=== PATIENT | female | born 1930 | race Caucasian/White ===

== ENCOUNTER → 2016-09-23 | Outpatient (CLI) | payer MEDICARE ==
[2016-09-23 15:02] VITALS: BP 183/99; PULSE 72; RESP 18
--- NOTE | 2016-09-23 15:21 | P.PN ---
Progress Note - Text This is a pleasant 86-year-old female with history of right leg pain with numbness and tingling mostly on the lateral aspect of her right leg. The patient denies any bowel or bladder problems. She feels weakness in her right leg when she steps on it and her pain gets worse with weightbearing activities. She has been using Tylenol to help with her pain however the last it was very painful for her. Her pain has improved since then and it is much better today. She does have severe central stenosis at the L4 5 and L3 4 levels on the MRI of her lumbar spine. She usually gets pretty significant relief of her pain after the epidural steroid injection that she used to get. The last epidural steroid injection was done in February 2016. She had both interlaminar and transforaminal epidural steroid injection in both of these approaches give her good relief of pain. Today I will schedule the patient to have a transforaminal epidural steroid injection at the L4 5 and L3 4 levels on the right side under fluoroscopic guidance. I will also give the patient prescription for only 15 pills of Novi 5/325 mg to be used with severe pain if we can get her in soon enough for her procedure. The patient has a history of diabetes and she usually gets hyperglycemia for 3 days after the procedure however she was able to treat her hyperglycemia easily last time she had it.
== END | disposition home or self-care (01) ==
LOC: PNWHC3 14:24
PROVIDERS: ATTEND Anesthesiology
DX: M48.06 Spinal stenosis, lumbar region (principal); E11.9 Type 2 diabetes mellitus without complications; Z79.899 Other long term (current) drug therapy
CPT/HCPCS: 99211

== ENCOUNTER → 2017-12-22 | Outpatient (CLI) | payer MEDICARE ==
[2017-12-22 13:12] VITALS: BP 160/79; PULSE 78; RESP 18
--- NOTE | 2017-12-22 13:27 | P.PN ---
Progress Note - Text Progress Note Date: 12/22/17 Patient returns for followup for chronic back pain with radiation to bilateral posterior thighs. Patient recently underwent right sided TFESI x 2 in July 2016 with good pain relief, but legs have weakened in the past 18 months and she now has pain in both legs shooting down to her toes with numbness. Pain worsens with walking and improves with sitting down Patient denies adverse drug effects from medications. Today, pt denies new-onset weakness, bowel/bladder incontinence, or any other signs or symptoms of cauda equina syndrome. In addition to above, 13-point review of systems is also negative for chest pain , shortness of breath, changes in vision, changes in hearing, new onset weakness , abdominal pain, diarrhea, extreme fatigue, malaise, fever, skin changes, homicidal or suicidal ideation, or bowel or bladder incontinence. Gen: WDWN, AAOx3, NAD HEENT: NCAT, EOMI, hearing grossly normal Pulm: resp unlabored Abd: soft, NT, ND Neck: supple, trachea midline ROM in flexion lumbar spine: full ROM in extension lumbar spine: full Lumbar paravertebral tenderness: neg bilaterally Facet loading: neg bilaterally SI joint tenderness: neg bilateral Amandeep's test: neg bilateral Straight leg raise: + bilaterally Lower extremity: reduced strength in dorsi/plantarflexion Neuro: CN II-XII grossly intact, muscle strength lower extremities PRESERVED; decreased sensation bilateral LEs posterior Assessment: 1. lumbar spinal stenosis with neurogenic claudication 2. lumbar radiculopathy 3. lumbar spondylosis without myelopathy Plan: 1. Explanation: Opioid and psychological risk scores were reviewed. Diagnoses , prognoses, and multiple treatment options including but not limited to physical therapy, interventional therapies, adjuvant medical therapies, narcotic medication therapies, and surgery were discussed with the patient and all questions were answered to the patient's satisfaction. 2. Opioid contract: no opioids prescribed today 2. Counseling: The patient was counseled extensively on BODY MASS INDEX and EXERCISE. Specifically, the patient was instructed regarding the importance of smoking cessation, obesity, and exercise in the context of both chronic pain and overall health. 3. Procedures: LESI series L4-L5 if possible 4. Consultations: None 5. Investigations: None 6. Medications: none prescribed 7. Disposition: f/u for procedure as scheduled PQRS measures: 1-Patient's medications are documented in the chart. 2-Tobacco use is negative 3-Patient has not had a pneumococcal vaccine. 4-Advanced care planning discussed, patient not eligible. 5-No opioid contract 6-Pain positive, follow-up visit or procedure scheduled 7-Patient's blood pressure measured and documented, and patient will follow up with the primary care due to very high blood pressure. 8-Patient's weight was measured, and body mass index ABOVE the normal limits, and counseling was done. Patient instructed to follow up with PCP. 9-Patient WAS NOT identified as an unhealthy alcohol user.
== END | disposition home or self-care (01) ==
LOC: PNWHC3 12:19
PROVIDERS: ATTEND Anesthesiology
DX: G89.29 Other chronic pain (principal); M54.9 Dorsalgia, unspecified; M48.062 Spinal stenosis, lumbar region with neurogenic claudication; M47.26 Other spondylosis with radiculopathy, lumbar region
CPT/HCPCS: 99211

== ENCOUNTER 2018-01-25 09:38 | Day surgery (SDC) | payer MEDICARE ==
[2018-01-19 15:33] VITALS: BMI 31.1
[~2018-01-25 09:38] MED LIST: LACTATED RINGERS 1,000 ML IV SCH
[2018-01-25 10:38] VITALS: RESP 16; TEMP 98.6
[2018-01-25] MEDS ORDERED: LIDOCAINE 1% 20 ML VIAL (10MG/ML) FOR IV START INTRADERMA ONE (10:39)
[2018-01-25 10:54] LABS: Glucose,Whole Blood 135 mg/dL (75-99)
--- NOTE | 2018-01-25 11:48 | P.PCN ---
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 3-lumbar radiculopathy. 4-lumbar spinal stenosis. POSTOPERATIVE DIAGNOSIS: Same as preoperative diagnosis. PROCEDURE 1. Lumbar epidural steroid injection under fluoroscopic guidance at the L5-S1 level. 2. Lumbar epidurogram. ANESTHESIA: Local with 1% lidocaine 3 ml and , moderate sedation with intravenous Versed 2 mg , EBL: Minimal PROCEDURE INDICATION: The patient with low back pain and radiculitis symptoms unresponsive to conservative treatment. Fluoroscopy was used to optimize visualization of the needle placement and to maximize safety. PROCEDURE DESCRIPTION / TECHNIQUE: The patient was seen and identified in the preoperative area. Risks, benefits , complications including but not limited to infections ,bleeding ,allergic reaction to the medications ,nerve damage and not complete pain releife , and alternatives were discussed with the patient. The patient agreed to proceed with the procedure and signed the consent. IV was started, and vital signs were stable. Patient was taken to the OR and time out was completed. The patient was placed in the prone position on procedure table and a pillow was placed under the abdomen to reduce lumbar lordosis. The lumbosacral area was prepped and draped in the usual sterile fashion.ere closely monitored during the procedure. Conscious sedation was used during the procedure to decrease patients anxiety. Vital signs was monitered during the entire procedure. Using anterior-posterior fluoroscopy, the L5-S1 interlaminar space was identified and the skin over this site was marked and then infiltrated with 1% lidocaine subcutaneously. Subsequently, a 20-gauge Tuohy epidural needle was inserted and advanced toward the epidural space using the ``Loss of resistance technique and guided by AP and lateral fluoroscopy. The correct needle position in the epidural space was verified with the injection of 2 mL of the water soluble contrast dye Isovue 200 contrast and observing an excellent epidurogram with the epidural spread of the dye, after negative aspiration for blood and CSF and in the absence of paresthesias. Again after negative aspiration, a 6 ml mixture containing 40 mg of Depomedrol and 2 ml of preservative free Normal Saline, and 2 ml of preservative free lidocaine 1% solution was injected and a washout of epidurogram was seen. Needle was withdrawn intact, skin was cleansed, and bandages were applied. COMPLICATIONS: None DISPOSITION / PLANS: The patient was placed in a supine position and transferred to the recovery area in a stable condition for observation. There was no evidence of lower extremity motor or sensory deficit after the procedure. Patient was discharged from the recovery room after meeting discharge criteria. Home discharge instructions were given to the patient by the staff. The patient was reexamined prior to discharge. The patient will schedule a follow up in the clinic in 2-4 weeks.
[2018-01-25] MEDS ORDERED: LACTATED RINGERS 1,000 ML IV ONE (12:07)
[2018-01-25 12:10] VITALS: BP 142/63; PULSE 67
[2018-01-25 12:21] LABS: Glucose,Whole Blood 146 mg/dL (75-99)
--- NOTE | 2018-01-25 13:19 | FL ---
Fluoroscopy HISTORY: Pain 1 seconds fluoroscopy time supplied to the referring clinician. 1 intraoperative C-arm images docume nt the procedure. See dictated report from anesthesia.
== END 2018-01-25 12:39 | disposition home or self-care (01) ==
LOC: ORPAIN 09:38
PROVIDERS: ATTEND Specialist
DX: M48.061 Spinal stenosis, lumbar region without neurogenic claudication (principal); M51.16 Intervertebral disc disorders with radiculopathy, lumbar region; M47.26 Other spondylosis with radiculopathy, lumbar region; I10 Essential (primary) hypertension; E11.9 Type 2 diabetes mellitus without complications; Z88.3 Allergy status to other anti-infective agents
CPT/HCPCS: 62323; J2250; J1030; Q9966

== ENCOUNTER 2018-02-17 07:14 | Day surgery (SDC) | payer MEDICARE ==
[2018-02-14 09:26] VITALS: BMI 31.5
[2018-02-17] MEDS ORDERED: LIDOCAINE 1% 20 ML VIAL (10MG/ML) FOR IV START INTRADERMA ONE (07:36)
[2018-02-17 07:40] VITALS: TEMP 97.6
[2018-02-17 07:41] LABS: Glucose,Whole Blood 121 mg/dL (75-99)
--- NOTE | 2018-02-17 07:57 | P.PCN ---
Date of Procedure: 02/17/18 Description of Procedure: PREOPERATIVE DIAGNOSIS: 1-Lumbar radiculitis. POSTOPERATIVE DIAGNOSIS: 1-Lumbar radiculitis. PROCEDURE 1. Lumbar epidural steroid injection under fluoroscopic guidance at the L5-S1 level. 2. Lumbar epidurogram. ANESTHESIA: Local with 1% lidocaine; IV sedation with Versed/fentanyl. EBL: Minimal PROCEDURE INDICATION: The patient with low back pain and radiculitis symptoms unresponsive to conservative treatment, with good relief from first procedure and significant improvement in leg pain. Fluoroscopy was used to optimize visualization of the needle placement and to maximize safety. PROCEDURE DESCRIPTION / TECHNIQUE: The patient was seen and identified in the preoperative area. Risks, benefits, complications, and alternatives were discussed with the patient, including but not limited to bleeding, infection, nerve damage, allergic reactions to medications, and incomplete pain relief. The patient agreed to proceed with the procedure and signed the consent after all questions were answered. IV was started, and vital signs were stable. Patient was taken to the OR and time out was completed to confirm patient position, procedure, laterality of pain, and allergies. The patient was placed in the prone position on procedure table and a pillow was placed under the abdomen to reduce lumbar lordosis. The lumbosacral area was prepped and draped in the usual sterile fashion. Critical pause was taken. Vital signs were closely monitored during the procedure. Conscious sedation was used during the procedure to decrease patients anxiety. Using anterior-posterior fluoroscopy, the L5-S1 interlaminar space was identified and the skin over this site was marked and then infiltrated with 1% lidocaine subcutaneously in a right paramedian fashion. Subsequently, a 20- gauge Tuohy epidural needle was inserted and advanced toward the epidural space using the Loss of resistance technique and guided by AP and lateral fluoroscopy. The correct needle position in the epidural space was verified with the injection of 2 mL of the water soluble contrast dye Omnipaque 300 contrast and observing an excellent epidurogram with the epidural spread of the dye, after negative aspiration for blood and CSF and in the absence of paresthesias. Again after negative aspiration, a 6 ml mixture containing 80 mg of Kenalog and 4 ml of preservative free Normal Saline was injected and a washout of epidurogram was seen. Needle was withdrawn intact, skin was cleansed , and bandages were applied. COMPLICATIONS: None COMMENTS: DISPOSITION / PLANS: The patient was placed in a supine position and transferred to the recovery area in a stable condition for observation. There was no evidence of lower extremity motor or sensory deficit after the procedure. Patient was discharged from the recovery room after meeting discharge criteria. Home discharge instructions were given to the patient by the staff. The patient was reexamined prior to discharge. The patient will schedule a follow up in the clinic in 2-4 weeks.
[2018-02-17] MEDS ORDERED: IV FLUID CONTINUATION 1,000 ML IV ONE (08:18)
[2018-02-17 08:34] VITALS: BP 160/69; PULSE 57; RESP 18
[2018-02-17 08:39] LABS: Glucose,Whole Blood 159 mg/dL (75-99)
--- NOTE | 2018-02-17 09:31 | FL ---
Fluoroscopy HISTORY: Pain 2 seconds fluoroscopy time supplied to the referring clinician. 1 intraoperative C-arm images docume nt the procedure. See dictated report from anesthesia.
== END 2018-02-17 08:56 | disposition home or self-care (01) ==
LOC: ORPAIN 07:14
PROVIDERS: ATTEND Anesthesiology
DX: M51.16 Intervertebral disc disorders with radiculopathy, lumbar region (principal); M48.061 Spinal stenosis, lumbar region without neurogenic claudication; I10 Essential (primary) hypertension
CPT/HCPCS: 62323; J2250; J3301; Q9966

== ENCOUNTER → 2018-03-07 | Day surgery (SDC) | payer MEDICARE ==
[2018-03-03 13:28] VITALS: BMI 31.1
--- NOTE | 2018-03-07 07:44 | P.PN ---
Progress Note - Text Progress Note Date: 03/07/18 This is 87 years FEMALE with a history of severe chronic low back pain with radiating to the lower extremity, she was diagnosed with lumbar radiculopathy lumbar degenerative disc disease, lumbar spinal stenosis, we have done 2 lumbar epidural steroid injection, first one in January 2018 and the second one was done in February 2018, patient reported that her pain after the injection is improved significantly, currently having no pain, she reports,that her activity of daily livings in prone significantly, patient was scheduled to have a third lumbar epidural steroid injection today, but because she has no pain and she is feeling well since the last injection , the procedure will be canceled today , she will follow up with the pain clinic when necessary.
== END ==
LOC: ORPAIN 06:06
PROVIDERS: ATTEND Specialist
DX: Z53.8 Procedure and treatment not carried out for other reasons (principal); G89.29 Other chronic pain

== ENCOUNTER → 2018-03-20 | Outpatient (CLI) | payer MEDICARE ==
[2018-03-20 12:04] LABS: Calcium 8.5 mg/dL (8.4-10.2); Potassium 3.8 mmol/L (3.5-5.1)
== END | disposition home or self-care (01) ==
LOC: LABMAIN 11:34
PROVIDERS: ATTEND Internal Medicine Nephrology
DX: N18.4 Chronic kidney disease, stage 4 (severe) (principal)
CPT/HCPCS: 36415; 80048

== ENCOUNTER 2018-09-19 08:01 | Day surgery (SDC) | payer MEDICARE ==
[2018-09-19] MEDS ORDERED: SODIUM CHLORIDE 0.9% 500 ML 500 ML IV SCH (08:51)
[2018-09-19 08:55] VITALS: TEMP 97.9
[2018-09-19] MEDS ORDERED: LACTATED RINGERS 1,000 ML IV ONE (09:05)
[2018-09-19] MEDS ORDERED: LIDOCAINE 1% 20 ML VIAL (10MG/ML) FOR IV START INTRADERMA ONE (09:05)
[2018-09-19 09:07] LABS: Glucose,Whole Blood 125 mg/dL (75-99)
--- NOTE | 2018-09-19 10:13 | P.PCN ---
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 4-lumbar spinal stenosis POSTOPERATIVE DIAGNOSIS: Same as preoperative diagnosis. PROCEDURE 1. Lumbar epidural steroid injection under fluoroscopic guidance at the L5-S1 level. 2. Lumbar epidurogram. ANESTHESIA: Local with 1% lidocaine 3 ml and , moderate sedation with intravenous Versed 2 mg . EBL: Minimal PROCEDURE INDICATION: The patient with low back pain and radiculitis symptoms unresponsive to conservative treatment. Fluoroscopy was used to optimize visualization of the needle placement and to maximize safety. PROCEDURE DESCRIPTION / TECHNIQUE: The patient was seen and identified in the preoperative area. Risks, benefits , complications including but not limited to infections ,bleeding ,allergic reaction to the medications ,nerve damage and not complete pain releife , and alternatives were discussed with the patient. The patient agreed to proceed with the procedure and signed the consent. IV was started, and vital signs were stable. Patient was taken to the OR and time out was completed. The patient was placed in the prone position on procedure table and a pillow was placed under the abdomen to reduce lumbar lordosis. The lumbosacral area was prepped and draped in the usual sterile fashion.ere closely monitored during the procedure. Conscious sedation was used during the procedure to decrease patients anxiety. Vital signs was monitered during the entire procedure. Using anterior-posterior fluoroscopy, the L5-S1 interlaminar space was identified and the skin over this site was marked and then infiltrated with 1% lidocaine subcutaneously. Subsequently, a 20-gauge Tuohy epidural needle was inserted and advanced toward the epidural space using the ``Loss of resistance technique and guided by AP and lateral fluoroscopy. The correct needle position in the epidural space was verified with the injection of 2 mL of the water soluble contrast dye Isovue 200 contrast and observing an excellent epidurogram with the epidural spread of the dye, after negative aspiration for blood and CSF and in the absence of paresthesias. Again after negative aspiration, a 6 ml mixture containing 40 mg of Depo-medrol , and 2 ml of preservative free Normal Saline, and 2 ml of preservative free lidocaine 1% solution was injected and a washout of epidurogram was seen. Needle was withdrawn intact, skin was cleansed, and bandages were applied. COMPLICATIONS: None DISPOSITION / PLANS: The patient was placed in a supine position and transferred to the recovery area in a stable condition for observation. There was no evidence of lower extremity motor or sensory deficit after the procedure. Patient was discharged from the recovery room after meeting discharge criteria. Home discharge instructions were given to the patient by the staff. The patient was reexamined prior to discharge. The patient will schedule a follow up in the clinic in 2-4 weeks.
--- NOTE | 2018-09-19 10:23 | FL ---
EXAMINATION TYPE: FL guided pain mgmt statistic DATE OF EXAM: 09/19/2018 HISTORY: Flouroscopy time 2 seconds of fluoroscopy provided. IMPRESSION: 1. Fluoroscopy time.
[2018-09-19] MEDS ORDERED: IV FLUID CONTINUATION 750 ML IV ONE (10:24)
[2018-09-19 10:38] VITALS: BP 161/57; PULSE 59; RESP 18
== END 2018-09-19 10:52 | disposition home or self-care (01) ==
LOC: ORPAIN 08:01
PROVIDERS: ATTEND Specialist
DX: M51.16 Intervertebral disc disorders with radiculopathy, lumbar region (principal); M47.26 Other spondylosis with radiculopathy, lumbar region; M48.061 Spinal stenosis, lumbar region without neurogenic claudication; I10 Essential (primary) hypertension; Z88.1 Allergy status to other antibiotic agents
CPT/HCPCS: 62323; J2250; J1030; Q9966

== ENCOUNTER → 2018-11-03 | Outpatient (CLI) | payer MEDICARE ==
[2018-11-03 14:08] VITALS: BP 159/84; PULSE 89; RESP 16
--- NOTE | 2018-11-03 14:24 | P.PN ---
Subjective Progress Note Date: 11/03/18 This is an 88-year-old lady with history of chronic lower back pain with radiation to the right lower extremity due to severe lumbar stenosis. The patient has been getting very good response to lumbar epidural steroid injections and she denies any pain in her right leg right now however she does have localized pain in the left buttock area that gets worse by sitting and improved by walking around. Today, pt denies new-onset weakness, bowel/bladder incontinence, or any other signs or symptoms of cauda equina syndrome. There are no signs of acute intoxication, and no indications of medication diversion or overuse. In addition to above, 13-point review of systems is also negative for chest pain , shortness of breath, changes in vision, changes in hearing, new onset weakness , abdominal pain, diarrhea, extreme fatigue, malaise, fever, skin changes, homicidal or suicidal ideation, or bowel or bladder incontinence. Vital Signs: Reviewed in EMR Gen: AAOx3, NAD HEENT: PERRLA,hearing grossly normal Pulm: resp unlabored,CTA Heart:S1,S2, No Mur Neck: supple, trachea midline Neuro exam of the lower extremities: Muscle strength is within normal limits bilaterally She has tenderness around the left ischial tuberosity Neuro: CN II-XII grossly intact, Imaging: Reviewed in EMR/chart Assessment: Severe lumbar stenosis Left ischial bursitis Plan: The patient's pain overall is a 3 out of 10 and has improved significantly since the last injection in her back. 1. Explanation: Opioid and psychological risk scores were reviewed. Diagnoses , prognoses, and multiple treatment options including but not limited to physical therapy, interventional therapies, adjuvant medical therapies, narcotic medication therapies, and surgery were discussed with the patient and all questions were answered to the patient's satisfaction. 2. Opioid agreement: Patient is done in the morning for her pain 3. Counseling: The patient was counseled extensively on SMOKING CESSATION, BODY MASS INDEX, EXERCISE. Specifically, the patient was instructed regarding the importance of smoking cessation, obesity, and exercise in the context of both chronic pain and overall health. 4. Procedures: None at this point however if her left buttock pain gets worse and then we can plan on doing left ischial bursa steroid injection 5. Consultations: None 6. Investigations: None 7. Medications: None 8. Disposition: Return to clinic as needed 9. Maps were reviewed and were appropriate. PQRS measures: 1-Patient's medications are documented in the chart. 2-Tobacco use is negative, counseling given 3-Patient has had a pneumococcal vaccine. 4-Advanced care planning discussed, patient unable to give 5-Opioid contract is not signed with the patient. The patient does not was opioids for her pain. 6-Pain positive, follow-up visit or procedure scheduled 7-Patient's blood pressure measured and documented elevated, the patient will follow-up with her primary care physician. 8-Patient's weight was measured, and body mass index ABOVE the normal limits, and counseling was done. Patient instructed to follow up with PCP. 9-Patient WAS NOT identified as an unhealthy alcohol user. Objective - Vital Signs Vital signs: Vital Signs Temp Pulse 89 11/03/18 13:57 Resp 16 11/03/18 13:57 BP 159/84 11/03/18 13:57 Pulse Ox 94 L 11/03/18 13:57 Intake & Output 11/02/18 11/03/18 11/03/18 18:59 06:59 18:59 Weight 75.75 kg
== END | disposition home or self-care (01) ==
LOC: PNWHC3 13:26
PROVIDERS: ATTEND Anesthesiology
DX: G89.29 Other chronic pain (principal); M48.061 Spinal stenosis, lumbar region without neurogenic claudication; M70.72 Other bursitis of hip, left hip
CPT/HCPCS: 99211

== ENCOUNTER 2018-12-21 07:51 | Day surgery (SDC) | payer MEDICARE ==
[2018-12-19 11:37] VITALS: BMI 31.1
[2018-12-21] MEDS ORDERED: LACTATED RINGERS 1,000 ML IV ONE (08:32)
[2018-12-21 08:34] VITALS: RESP 18; TEMP 97.8
[2018-12-21 08:38] LABS: Glucose,Whole Blood 181 mg/dL (75-99)
[2018-12-21] MEDS ORDERED: IV FLUID CONTINUATION 1,000 ML IV ONE (09:27)
--- NOTE | 2018-12-21 09:32 | P.PCN ---
Date of Procedure: 12/21/18 Procedure(s) Performed: Ischial bursa injection Description of Procedure: Procedure left ischial bursa injection Indication ischial bursitis Anesthesia: 50 gavin grams of fentanyl Patient was seen and assessed in the preoperative area. Consent was signed H&P was updated. Patient was brought into the procedure room and was placed supine on the operative table. Left buttock was prepped with ChloraPrep. Sterile field was made. Fluoroscopy was used to identify the ischial spine on the left side. At that time a 25-gauge spinal needle was advanced to the ischial spine. Aspiration was negative. At that time 5 ML's of 0.5% ropivacaine along with 40 mg of Depo-Medrol was placed. Images were saved into the medical record. Band- Aid was placed Patient to follow up with us as needed in the clinic.
--- NOTE | 2018-12-21 09:53 | FL ---
EXAMINATION TYPE: FL guided pain mgmt statistic DATE OF EXAM: 12/21/2018 HISTORY: Flouroscopy time 5 seconds of fluoroscopy provided. IMPRESSION: 1. Fluoroscopy time.
[2018-12-21 09:58] VITALS: BP 150/73; PULSE 56
== END 2018-12-21 10:03 | disposition home or self-care (01) ==
LOC: ORPAIN 07:51
PROVIDERS: ATTEND Hospitalist
DX: M70.72 Other bursitis of hip, left hip (principal); Z88.1 Allergy status to other antibiotic agents
CPT/HCPCS: 77002; 20610; J1100; J3010

== ENCOUNTER 2019-03-13 21:26 | Emergency (ER) | payer MEDICARE ==
[2019-03-13 22:07] VITALS: BP 178/99; PULSE 68; RESP 18; TEMP 97.9
--- NOTE | 2019-03-14 00:12 | ED ---
General Adult HPI - General Chief complaint: Extremity Problem,Nontraumatic Stated complaint: Poss blood clot in leg Time Seen by Provider: 03/13/19 22:31 Source: patient Mode of arrival: wheelchair Limitations: no limitations - History of Present Illness Initial comments: Dictation was produced using [employer] dictation software. please excuse any grammatical, word or spelling errors. Chief Complaint: 88-year-old female presents with left ankle pain and right calf pain 1 day. History of Present Illness: Patient is a 88-year-old female she presents today with left ankle pain and right calf pain. Patient is concerned about a blood clot popped her to come to the emergency department. Patient has no history of coagulopathy, DVT or PE. Patient presents today with family for concerns of DVT. Patient states there is no trauma to the leg. She does complain some swelling over the lateral malleolus. She has no other complaints at this time. Denies any shortness of breath or chest pain. The ROS documented in this emergency department record has been reviewed and confirmed by me. Those systems with pertinent positive or negative responses have been documented in the HPI. All other systems are other negative and/or noncontributory. PHYSICAL EXAM: General Impression: Alert and oriented x3, not in acute distress HEENT: Normocephalic atraumatic, extra-ocular movements intact, pupils equal and reactive to light bilaterally, mucous membranes moist. Cardiovascular: Heart regular rate and rhythm, S1&S2 audible, no murmurs, rubs or gallops Chest: Lungs clear to auscultation bilaterally, no rhonchi, no wheeze, no rales Abdomen: Bowel sounds present, abdomen soft, non-tender, non-distended, no organomegaly Musculoskeletal: Pulses present and equal in all extremities, no peripheral edema, mild swelling to the left lateral ankle, no asymmetrical swelling to the lower extremities, mild left calf tenderness. Motor: no focal deficits noted Neurological: CN II-XII grossly intact, no focal motor or sensory deficits noted Skin: Intact with no visualized rashes Psych: Normal affect and mood ED course: 88-year-old female presents with chief complaint of left lateral malleolus pain. No trauma. Swelling is minimal at best. Patient is concerned about deep venous thrombosis. Patient does have some slight calf tenderness. Over no asymmetrical girth. Vital signs upon arrival are within acceptable limits. Patient does not have any physical exam findings or complaints to suggest pulmonary embolus.Ankle x-rays and ultrasound of the left lower extremity deep venous system does not show any signs of deep venous thrombosis. Ankle x-rays are nonacute. Patient clear for discharge. She is told to follow- up with PCP for outpatient management of symptoms. - Related Data Home Medications Medication Instructions Recorded Confirmed Atenolol [Tenormin] 25 mg PO DAILY 06/04/15 03/13/19 Ferrous Sulfate [Feosol] 325 mg PO DAILY 06/04/15 03/13/19 Ergocalciferol [Vitamin D2] 50,000 unit PO MO 12/09/15 03/13/19 Insulin Lispro Protamin/Lispro See Protocol SQ QAM 12/09/15 03/13/19 [humaLOG Mix 75-25 Kwikpen] Potassium Citrate [Urocit-K] 10 meq PO DAILY 12/09/15 03/13/19 L.acidoph,Paracasei, B.lactis 1 cap PO DAILY 01/22/16 03/13/19 [Probiotic] Gabapentin [Neurontin] 100 mg PO DAILY 09/23/16 03/13/19 Turmeric Root Extract [Turmeric] 400 mg PO DAILY 11/03/18 03/13/19 Allergies Allergy/AdvReac Type Severity Reaction Status Date / Time levofloxacin [From Levaquin] Allergy SHORTNESS Verified 03/13/19 22:51 OF BREATH Review of Systems ROS Statement: Those systems with pertinent positive or pertinent negative responses have been documented in the HPI. ROS Other: All systems not noted in ROS Statement are negative. Past Medical History Past Medical History: Cancer, Diabetes Mellitus, Hypertension, Osteoarthritis (OA), Renal Disease Additional Past Medical History / Comment(s): HX "sciatica." PAIN IN BUTTOCKS AND DOWN LEGS, NUMBNESS IN TOES. HX OF FALL IN 12/2016, FX 2 RIBS. kidney stones. RENAL DISEASE STAGE 4., STATES RECENT SKIN CANCER ON FACE REMOVED. History of Any Multi-Drug Resistant Organisms: None Reported Past Surgical History: Hysterectomy Additional Past Surgical History / Comment(s): SKIN CA EXC BACK, RT Hand & ELBOW. PAIN PROCEDURES. Past Anesthesia/Blood Transfusion Reactions: No Reported Reaction Past Psychological History: No Psychological Hx Reported Smoking Status: Never smoker Past Alcohol Use History: None Reported Past Drug Use History: None Reported - Past Family History Daughter(s) Family Medical History: Cancer, Pulmonary Embolus Father Family Medical History: Cancer Additional Family Medical History / Comment(s): BLADDER CANCER General Exam Limitations: no limitations Course Vital Signs 03/13/19 22:03 Temperature 97.9 F Pulse Rate 68 Respiratory 18 Rate Blood Pressure 178/99 O2 Sat by Pulse 100 Oximetry Disposition Clinical Impression: Ankle pain Disposition: HOME SELF-CARE Condition: Poor Instructions (If sedation given, give patient instructions): Swollen Joint (ED) Is patient prescribed a controlled substance at d/c from ED?: No Referrals: Emil Portillo MD [Primary Care Provider] - 1-2 days Time of Disposition: 01:34
--- NOTE | 2019-03-14 00:26 | XR ---
INDICATION: Pain COMPARISON: None FINDINGS: AP, mortise, and lateral views of the left ankle are obtained. The bones are osteopenic. There is no evidence of acute fracture or malalignment. Ankle mortise and syndesmosis are congruent and the talar dome is intact. There are well-corticated ossicles inferior to the tips of the medial and lateral malleoli, compatible with sequela of prior trauma. There is posterior and plantar calcaneal enthesopathy. There is no focal soft tissue swelling. IMPRESSION: No acute fracture or subluxation identified.
--- NOTE | 2019-03-14 01:24 | US ---
INDICATION: Pain and swelling left leg TECHNIQUE: The left lower extremity deep venous system is examined utilizing real time linear array sonography with graded compression, doppler sonography and color-flow sonography. COMPARISON: None. FINDINGS: Normal compressibility is demonstrated from the common femoral vein to the popliteal vein. There is normal response to augmentation. Normal spontaneous phasic flow is noted. The proximal calf veins are patent. IMPRESSION: No evidence of deep venous thrombosis in the left lower extremity.
== END 2019-03-14 01:45 | disposition home or self-care (01) ==
LOC: EC 21:26
DX: M25.572 Pain in left ankle and joints of left foot (principal); M79.89 Other specified soft tissue disorders; I12.9 Hypertensive chronic kidney disease with stage 1 through stage 4 chronic kidney disease, or unspecified chronic kidney disease; E13.22 Other specified diabetes mellitus with diabetic chronic kidney disease; N18.4 Chronic kidney disease, stage 4 (severe); Z79.4 Long term (current) use of insulin; Z79.899 Other long term (current) drug therapy; Z88.1 Allergy status to other antibiotic agents; Z87.39 Personal history of other diseases of the musculoskeletal system and connective tissue; Z91.81 History of falling; Z87.81 Personal history of (healed) traumatic fracture; Z85.828 Personal history of other malignant neoplasm of skin
CPT/HCPCS: 99284

== ENCOUNTER → 2019-07-19 | Outpatient (CLI) | payer MEDICARE ==
[2019-07-19 11:28] VITALS: BP 165/89; PULSE 72; RESP 16
--- NOTE | 2019-07-20 09:22 | P.PAINPG ---
Subjective Progress Note Date: 07/19/19 This is a follow-up visit for this 89 years old female with a chronic history of severe low back pain, she states diagnosed with lumbar degenerative disc disease and lumbar spinal stenosis and lumbar spondylosis with lumbar facet arthropathy, and left trochanteric bursitis, previously we have done lumbar epidural steroid injection, and left trochanteric bursa, patient responded very well to interventional pain management, currently patient complaining of severe low back pain with radiation to the lower extremity with some numbness and tingling sensation, and also she had severe left hip pain, the pain increases with any activity, interfere with the quality of life, it is constant, she continued to use Tylenol arthritis and Neurontin 100 mg, she denies any side effect of the medication and she is getting prescriptions from her primary care, she denies any change in the bowel movement or urination she denies any fever or night sweats Objective - Vital Signs Vital signs: Vital Signs Temp Pulse 72 07/19/19 11:20 Resp 16 07/19/19 11:20 BP 165/89 07/19/19 11:20 Pulse Ox 97 07/19/19 11:20 - Exam Physical Examinations : -Constitutiona : Cooperative , not in acute distress . -HEENT : nech : supple , no Lymphadenopathy , normal thyroid size . : eyes : no ptosis , no icterus, no photophobia . - neurologic : Cranial nerve II to XII intact , no focal neurological deffecit . -psychatric : alert , oriented X 3 , appropriate affect , intact judgment and insight . -Lymphatic : no Lymphadenopathy . - musculoskeltal : Lumber spine moter stegnth lower extremities ,thigh and legs 4/5 Right side , 4/5 Left side deep tendon reflexes : normal Knee Jerk , normal ankle Jerk lumber facet Loading Test =positive Right , posiutive Left Range of motion of the lumbar spine Flexion 30 degrees, extension 10 degrees strait leg raising test = positive at 30 degree Fabere test= positive Right , and positive LT . Sever tenderness over the left trochanteric bursa . Assessment and Plan Plan: Assessment and plan= low back pain secondary to lumbar degenerative disc disease and lumbar spinal stenosis and lumbar spondylosis, and left trochanteric bursitis, patient will be good candidate to have a left trochanteric bursa steroid injection at the same time we can do a lumbar epidural steroid injection under fluoroscopy guidance at L5-S1, or L4-L5 , procedure risk and benefits and alternatives discussed with the patient she agreed with the preceding. Patient should continue to use her current medications Tylenol arthritis and Neurontin and she is getting prescriptions from her primary care Time with Patient: Less than 30 PQRS Measure Charge Sheet Measure #130: Documentation of Current Meds in Medical Chart: Patient's medications documented in chart Measure #226: Tobacco Use: Screen & Cessation Intervention: Pt not a tobacco user Measure #111: Pneumonia Vaccination: Pneumococcal vaccine administered or previously received Measure #47: Advance Care Plan: Advance care planning discussed & documented, pt chose/unable to give Measure #412: Opioid Treatment Agreement: No documentation of signed opioid treatment agreement Measure #408: Opioid Therapy Follow-up Evaluation: Patient had NO f/u eval minimum every 3 months during opioid therapy Measure #317: Preventitive Care & Scrn High Bld Press & F/U: Pre-hypertensive or hypertensive BP documented, pt will f/u with PCP Measure #128: Body Mass Index (BMI) Screening & Follow-up: BMI documented ABOVE normal parameters - f/u documented Measure #131: Pain Assessment & Follow-up: Pain positive & plan documented, Follow-up scheduled Measure #431: Unhealthy Alcohol Use Preventative Care & Scrn: Patient not identified as an unhealthy alcohol user PQRS Narrative: Smoking Status Never smoker Blood Pressure 165/89 Pain Intensity [Buttock] 7 Scale Used Numeric (1 - 10) Hx Alcohol Use (MH) No Home Medications: Ambulatory Orders Atenolol [Tenormin] 25 mg PO DAILY 06/04/15 Ferrous Sulfate [Feosol] 325 mg PO DAILY 06/04/15 Ergocalciferol [Vitamin D2] 50,000 unit PO MO 12/09/15 Insulin Lispro Protamin/Lispro [humaLOG Mix 75-25 Kwikpen] See Protocol SQ QAM 12/09/15 Potassium Citrate [Urocit-K] 10 meq PO DAILY 12/09/15 Gabapentin [Neurontin] 100 mg PO DAILY 09/23/16 Turmeric Root Extract [Turmeric] 400 mg PO DAILY 11/03/18 Acetaminophen [Tylenol Arthritis] 1,300 mg PO DAILY PRN 07/13/19 Controlled Substance Measures - Controlled Substance Measures Is patient prescribed a controlled substance at discharge?: No
== END | disposition home or self-care (01) ==
LOC: PNWHC3 10:53
PROVIDERS: ATTEND Specialist
DX: M48.061 Spinal stenosis, lumbar region without neurogenic claudication (principal); M51.36 Other intervertebral disc degeneration, lumbar region; M47.816 Spondylosis without myelopathy or radiculopathy, lumbar region; M70.62 Trochanteric bursitis, left hip; Z79.891 Long term (current) use of opiate analgesic; Z79.899 Other long term (current) drug therapy
CPT/HCPCS: 99211

== ENCOUNTER 2019-07-27 05:54 | Day surgery (SDC) | payer MEDICARE ==
[2019-07-26 09:19] VITALS: BMI 29.0
[2019-07-27 06:24] VITALS: TEMP 97.7
[2019-07-27] MEDS ORDERED: LIDOCAINE 1% 20 ML VIAL (10MG/ML) FOR IV START INTRADERMA ONE (06:24)
[2019-07-27 06:36] LABS: Glucose,Whole Blood 177 mg/dL (75-99)
[2019-07-27] MEDS ORDERED: hydrALAZINE HCL 20 MG/ML 1 ML VIAL IVP PRN (07:24)
--- NOTE | 2019-07-27 07:24 | P.PCN ---
Date of Procedure: 07/27/19 Procedure(s) Performed: PREOPERATIVE DIAGNOSIS: 1- Lumbar Degenerative Disc Diseases 2-Lumbar spondylosis with Facet arthropathy without myelopathy 3-left trochanteric bursitis. POSTOPERATIVE DIAGNOSIS: 1-Lumber Degenerative Disc Diseases 2-Lumbar spondylosis with Facet arthropathy without myelopathy. 3-left trochanteric bursitis. PROCEDURE 1. Lumbar epidural steroid injection under fluoroscopic guidance at the L5-S1 level. (Fluoroscopy imaging was available in radiology department) 2. Lumbar epidurogram. 3. Left trochanteric bursa steroid injection under fluoroscopy guidance. ANESTHESIA: Local with 1% lidocaine 3 ml and , moderate sedation with intravenous Versed 1 mg . EBL: Minimal PROCEDURE INDICATION: The patient with low back pain and radiculitis symptoms unresponsive to conservative treatment. Fluoroscopy was used to optimize visualization of the needle placement and to maximize safety. PROCEDURE DESCRIPTION / TECHNIQUE: The patient was seen and identified in the preoperative area. Risks, benefits, complications including but not limited to infections ,bleeding ,allergic reaction to the medications ,nerve damage and not complete pain releife , and alternatives were discussed with the patient. The patient agreed to proceed with the procedure and signed the consent. IV was started, and vital signs were stable. Patient was taken to the OR and time out was completed. The patient was placed in the prone position on procedure table and a pillow was placed under the abdomen to reduce lumbar lordosis. The lumbosacral area was prepped and draped in the usual sterile fashion.ere closely monitored during the procedure. Conscious sedation was used during the procedure to decrease patients anxiety. Vital signs was monitered during the entire procedure. Using anterior-posterior fluoroscopy, the L5-S1 interlaminar space was identif ied and the skin over this site was marked and then infiltrated with 1% lidocaine subcutaneously. Subsequently, a 20-gauge Tuohy epidural needle was inserted and advanced toward the epidural space using the ``Loss of resistance technique and guided by AP and lateral fluoroscopy. The correct needle position in the epidural space was verified with the injection of 2 mL of the water soluble contrast dye Isovue 200 contrast and observing an excellent epidurogram with the epidural spread of the dye, after negative aspiration for blood and CSF and in the absence of paresthesias. Again after negative aspiration, a 6 ml mixture containing 40 mg of Depo-medrol , and 2 ml of preservative free Normal Saline, and 2 ml of preservative free lidocaine 1% solution was injected and a washout of epidurogram was seen. Needle was withdrawn intact. In the left trochanteric bursa injection done under sterile technique after the left hip area prepped with Betadine 3 then using 25-gauge needle the needle advanced slowly under fluoroscopy and placed in the left trochanteric bursa area, needle placement confirmed with AP and lateral view then after negative aspiration ropivacaine 0.5% far mixed with 10 mg of Depo-Medrol, injected in the left trochanteric bursa after negative aspiration, and the needle removed intact, and area was cleaned COMPLICATIONS: None DISPOSITION / PLANS: The patient was placed in a supine position and transferred to the recovery area in a stable condition for observation. There was no evidence of lower extremity motor or sensory deficit after the procedure. Patient was discharged from the recovery room after meeting discharge criteria. Home discharge instructions were given to the patient by the staff. The patient was reexamined prior to discharge. The patient will schedule a follow up in the clinic in 2-4 weeks.
[2019-07-27] MEDS ORDERED: IV FLUID CONTINUATION 1,000 ML IV ONE (07:27)
[2019-07-27] MEDS ORDERED: hydrALAZINE HCL 20 MG/ML 1 ML VIAL IVP ONE (07:35)
[2019-07-27 07:51] VITALS: BP 154/71; PULSE 64; RESP 16
--- NOTE | 2019-07-27 07:51 | FL ---
Fluoroscopy HISTORY: Pain 5 seconds fluoroscopy time supplied to the referring clinician. 2 intraoperative C-arm images docume nt the procedure. See dictated report from anesthesia.
== END 2019-07-27 08:02 | disposition home or self-care (01) ==
LOC: ORPAIN 05:54
PROVIDERS: ATTEND Specialist
DX: M47.26 Other spondylosis with radiculopathy, lumbar region (principal); M51.16 Intervertebral disc disorders with radiculopathy, lumbar region; M70.62 Trochanteric bursitis, left hip; I10 Essential (primary) hypertension; E11.9 Type 2 diabetes mellitus without complications; Z88.1 Allergy status to other antibiotic agents
CPT/HCPCS: 62323; 20610; J2250; J0360; J1030; Q9966; 99152

== ENCOUNTER 2019-08-14 11:01 | Inpatient (IN) | payer MEDICARE ==
[2019-08-14] MEDS ORDERED: SODIUM CHLORIDE 0.9% 1,000 ML IV STA (11:17)
[2019-08-14] MEDS ORDERED: DILTIAZEM 5 MG/ML 5 ML VIAL IVP STA (11:23)
--- NOTE | 2019-08-14 11:25 | ED ---
SOB HPI - General Chief Complaint: Shortness of Breath Stated Complaint: Dizziness Time Seen by Provider: 08/14/19 11:17 Source: EMS Mode of arrival: EMS Limitations: no limitations - History of Present Illness Initial Comments: Patient complains of progressively worsening shortness of breath. She also has lightheadedness. Her lightheadedness and shortness of breath are worse when she gets up. She states that her symptoms were so much worse today that she was afraid to get out of bed. She lives by herself. She does not feel like she can walk because she is so lightheaded when she stands up. She has palpitations. She has no chest pain or pressure. She has no pain or swelling in the arms or legs. She has no nausea or vomiting or diaphoresis. She has taken no medicine for this. She denies sick contacts or travel. - Related Data Home Medications Medication Instructions Recorded Confirmed Atenolol [Tenormin] 25 mg PO DAILY PRN 06/04/15 08/14/19 Ferrous Sulfate [Feosol] 325 mg PO DAILY 06/04/15 08/14/19 Ergocalciferol [Vitamin D2] 50,000 unit PO MO 12/09/15 08/14/19 Insulin Lispro Protamin/Lispro See Protocol SQ QAM 12/09/15 08/14/19 [humaLOG Mix 75-25 Kwikpen] Potassium Citrate [Urocit-K] 10 meq PO DAILY 12/09/15 08/14/19 Gabapentin [Neurontin] 100 mg PO DAILY 09/23/16 08/14/19 Turmeric Root Extract [Turmeric] 400 mg PO DAILY 11/03/18 08/14/19 Acetaminophen [Tylenol Arthritis] 1,300 mg PO DAILY PRN 07/13/19 08/14/19 Allergies Allergy/AdvReac Type Severity Reaction Status Date / Time levofloxacin [From Levaquin] Allergy SHORTNESS Verified 08/14/19 09:34 OF BREATH Review of Systems ROS Statement: Those systems with pertinent positive or pertinent negative responses have been documented in the HPI. ROS Other: All systems not noted in ROS Statement are negative. Past Medical History Past Medical History: Cancer, Diabetes Mellitus, Hypertension, Osteoarthritis (OA), Renal Disease Additional Past Medical History / Comment(s): HX "sciatica." PAIN IN BUTTOCKS AND DOWN LEGS, NUMBNESS IN TOES-now resolved. HX OF FALLS, FX 2 RIBS. kidney stones. RENAL DISEASE STAGE 4 (STATES IMPROVED)., SKIN CANCER, STATES SHE HAS DIFFICULTY PICKING UP HER FEET WHEN SHE WALKS OR GOING UP A CURB- SHE SCHUFFLES WHEN SHE WALKS., STATES LEFT LEG GOES NUMB AT TIMES, BALANCE PROBLEMS. BP has been running low at home recently-feels dizzy( to call PCP), hx gout History of Any Multi-Drug Resistant Organisms: None Reported Past Surgical History: Hysterectomy Additional Past Surgical History / Comment(s): SKIN CA EXC BACK and face, RT Hand & ELBOW. PAIN PROCEDURES. Past Anesthesia/Blood Transfusion Reactions: Family History of Problems w/ Anesthesia Additional Past Anesthesia/Blood Transfusion Reaction / Comment(s): DAUGHTER=PONV Past Psychological History: No Psychological Hx Reported Smoking Status: Never smoker - Past Family History Daughter(s) Family Medical History: Cancer, Pulmonary Embolus Father Family Medical History: Cancer Additional Family Medical History / Comment(s): BLADDER CANCER General Exam Limitations: no limitations General appearance: alert, in no apparent distress Head exam: Present: atraumatic, normocephalic, normal inspection Eye exam: Present: normal appearance, PERRL, EOMI. Absent: scleral icterus, conjunctival injection, periorbital swelling ENT exam: Present: normal exam, mucous membranes moist Neck exam: Present: normal inspection. Absent: tenderness, meningismus, lymphadenopathy Respiratory exam: Present: normal lung sounds bilaterally. Absent: respiratory distress, wheezes, rales, rhonchi, stridor Cardiovascular Exam: Present: tachycardia, irregular rhythm, normal heart sounds. Absent: systolic murmur, diastolic murmur, rubs, gallop, clicks GI/Abdominal exam: Present: soft, normal bowel sounds. Absent: distended, tenderness, guarding, rebound, rigid Extremities exam: Present: normal inspection, full ROM, normal capillary refill. Absent: tenderness, pedal edema, joint swelling, calf tenderness Back exam: Present: normal inspection Neurological exam: Present: alert, oriented X3, CN II-XII intact Psychiatric exam: Present: normal affect, normal mood Skin exam: Present: warm, dry, intact, normal color. Absent: rash Course Vital Signs 08/14/19 08/14/19 11:12 11:46 Temperature 97.9 F Pulse Rate 158 H 113 H Respiratory 18 16 Rate Blood Pressure 110/92 130/77 O2 Sat by Pulse 97 100 Oximetry Medical Decision Making - Medical Decision Making Patient presents with lightheadedness. She has shortness of breath. Her initial EKG showed atrial fibrillation with rapid ventricular response. After the IV Cardizem, the patient's rhythm changed to sinus rhythm. I ordered a oral dose of Cardizem. Patient will be admitted to the hospital. - Lab Data Result diagrams: 08/14/19 11:33 08/14/19 11:33 Lab Results 08/14/19 08/14/19 08/14/19 Range/Units 11:33 11:33 11:33 WBC 5.0 (3.8-10.6) k/uL RBC 3.56 L (3.80-5.40) m/uL Hgb 11.1 L (11.4-16.0) gm/dL Hct 32.3 L (34.0-46.0) % MCV 90.5 (80.0-100.0) fL MCH 31.2 (25.0-35.0) pg MCHC 34.4 (31.0-37.0) g/dL RDW 14.9 (11.5-15.5) % Plt Count 189 (150-450) k/uL Neutrophils % 65 % Lymphocytes % 28 % Monocytes % 5 % Eosinophils % 1 % Basophils % 0 % Neutrophils # 3.3 (1.3-7.7) k/uL Lymphocytes # 1.4 (1.0-4.8) k/uL Monocytes # 0.2 (0-1.0) k/uL Eosinophils # 0.0 (0-0.7) k/uL Basophils # 0.0 (0-0.2) k/uL Poikilocytosis Slight PT (9.0-12.0) sec INR (<1.2) APTT (22.0-30.0) sec Sodium 141 (137-145) mmol/L Potassium 3.1 L (3.5-5.1) mmol/L Chloride 112 H (98-107) mmol/L Carbon Dioxide 17 L (22-30) mmol/L Anion Gap 12 mmol/L BUN 28 H (7-17) mg/dL Creatinine 2.25 H (0.52-1.04) mg/dL Est GFR (CKD-EPI)AfAm 22 (>60 ml/min/1.73 sqM) Est GFR (CKD-EPI)NonAf 19 (>60 ml/min/1.73 sqM) Glucose 254 H (74-99) mg/dL Calcium 8.4 (8.4-10.2) mg/dL Magnesium 1.7 (1.6-2.3) mg/dL Total Bilirubin 1.5 H (0.2-1.3) mg/dL AST 23 (14-36) U/L ALT 19 (9-52) U/L Alkaline Phosphatase 60 (38-126) U/L Troponin I (0.000-0.034) ng/mL NT-Pro-B Natriuret Pep 1530 pg/mL Total Protein 6.1 L (6.3-8.2) g/dL Albumin 3.3 L (3.5-5.0) g/dL 08/14/19 08/14/19 Range/Units 11:33 11:33 WBC (3.8-10.6) k/uL RBC (3.80-5.40) m/uL Hgb (11.4-16.0) gm/dL Hct (34.0-46.0) % MCV (80.0-100.0) fL MCH (25.0-35.0) pg MCHC (31.0-37.0) g/dL RDW (11.5-15.5) % Plt Count (150-450) k/uL Neutrophils % % Lymphocytes % % Monocytes % % Eosinophils % % Basophils % % Neutrophils # (1.3-7.7) k/uL Lymphocytes # (1.0-4.8) k/uL Monocytes # (0-1.0) k/uL Eosinophils # (0-0.7) k/uL Basophils # (0-0.2) k/uL Poikilocytosis PT 10.0 (9.0-12.0) sec INR 0.9 (<1.2) APTT 22.2 (22.0-30.0) sec Sodium (137-145) mmol/L Potassium (3.5-5.1) mmol/L Chloride (98-107) mmol/L Carbon Dioxide (22-30) mmol/L Anion Gap mmol/L BUN (7-17) mg/dL Creatinine (0.52-1.04) mg/dL Est GFR (CKD-EPI)AfAm (>60 ml/min/1.73 sqM) Est GFR (CKD-EPI)NonAf (>60 ml/min/1.73 sqM) Glucose (74-99) mg/dL Calcium (8.4-10.2) mg/dL Magnesium (1.6-2.3) mg/dL Total Bilirubin (0.2-1.3) mg/dL AST (14-36) U/L ALT (9-52) U/L Alkaline Phosphatase (38-126) U/L Troponin I 0.036 H* (0.000-0.034) ng/mL NT-Pro-B Natriuret Pep pg/mL Total Protein (6.3-8.2) g/dL Albumin (3.5-5.0) g/dL 08/14/19 11:25 Twelve-lead EKG shows ventricular 171 bpm, no P waves are appreciated, the QRS complexes are wide, no ST elevation or depression, interpreted by me as atrial fibrillation with rapid ventricular response. 08/14/19 13:15 Second EKG was obtained, 12 leads, showing ventricular rate 92 bpm, normal AL interval, wide QRS complex is, no ST elevation or depression, interpreted by me as normal sinus rhythm. Critical Care Time Critical Care Time: Yes (IV cardizem) Total Critical Care Time: 35 Disposition Clinical Impression: Atrial fibrillation Disposition: ADMITTED IP TO THIS HOSP Condition: Fair Referrals: Emil Portillo MD [Primary Care Provider] - 1-2 days
--- NOTE | 2019-08-14 11:35 | XR ---
EXAMINATION TYPE: XR chest 1V portable DATE OF EXAM: 08/14/2019 COMPARISON: NONE HISTORY: Chest pain TECHNIQUE: Single frontal view of the chest is obtained. FINDINGS: There is no focal air space opacity, pleural effusion, or pneumothorax seen. The cardiac silhouette size is within normal limits. The osseous structures are intact. No overt failure. Diffu se osteopenia. Arthropathy of the AC joints. IMPRESSION: No acute process.
[2019-08-14 11:56] LABS: Basophils % (A) 0 %; Eosinophils % (A) 1 %; HCT 32.3 % (34.0-46.0); HGB 11.1 gm/dL (11.4-16.0); Lymphocytes # (A) 1.4 k/uL (1.0-4.8); Lymphocytes % (A) 28 %; MCH 31.2 pg (25.0-35.0); MCHC 34.4 g/dL (31.0-37.0); MCV 90.5 fL (80.0-100.0); Mean Platelet Volume 7.4; Monocytes # (A) 0.2 k/uL (0-1.0); Monocytes % (A) 5 %; Neutrophils # (A) 3.3 k/uL (1.3-7.7); Neutrophils % (A) 65 %; Platelet Count 189 k/uL (150-450); Poikilocytosis Slight; RBC 3.56 m/uL (3.80-5.40); RDW 14.9 % (11.5-15.5)
[2019-08-14 12:02] LABS: Albumin 3.3 g/dL (3.5-5.0); Calcium 8.4 mg/dL (8.4-10.2); Magnesium 1.7 mg/dL (1.6-2.3); Potassium 3.1 mmol/L (3.5-5.1); Total Bilirubin 1.5 mg/dL (0.2-1.3); Total Protein 6.1 g/dL (6.3-8.2)
[2019-08-14 12:03] LABS: INR 0.9 (<1.2); Partial Thromboplastin Time 22.2 sec (22.0-30.0)
[2019-08-14] MEDS ORDERED: DILTIAZEM ORAL 60 MG TAB PO STA (12:08)
[2019-08-14] MEDS ORDERED: NALOXONE 0.4 MG/ML 1 ML VIAL IV PRN (13:31)
[2019-08-14] MEDS ORDERED: traMADol 50 MG TAB PO PRN (13:31)
[2019-08-14] MEDS ORDERED: DOCUSATE 100 MG CAP PO PRN (13:31)
[2019-08-14] MEDS ORDERED: ONDANSETRON 4 MG/2 ML VIAL IVP PRN (13:31)
[2019-08-14] MEDS ORDERED: ATENOLOL 25 MG TAB PO PRN (13:34)
[2019-08-14] MEDS ORDERED: ACETAMINOPHEN TAB 500 MG TAB PO PRN (13:34)
[2019-08-14] MEDS ORDERED: ERGOCALCIFEROL 50,000 UNIT CAP PO SCH (14:00)
--- NOTE | 2019-08-14 14:38 | P.CRDCN ---
History of Present Illness Consult date: 08/14/19 Requesting physician: Emil Portillo Consult reason: atrial fibrillation Chief complaint: Dizziness History of present illness: This is an 89-year-old female with history of diabetes, hypertension, hyperlipidemia, skin cancer, who presents to the emergency room with symptoms of dizziness and near syncope. She states that the dizziness occurs mostly when she goes to stand up, she feels like she might pass out and she sits down. It does not happen on every occasion, but it has been going on and off for quite some time. She does state that at the time this happened she does feel her heart racing fast and beating irregular. Patient also admits to having some intermittent shortness of breath. The patient also states that she has lost almost 20 pounds of weight within the past couple of months, she states that everything she eats goes directly through her and she has diarrhea and loose stools. She denies ever having had a colonoscopy or GI evaluation. Overall her appetite has been poor. Her EKG on presentation to the emergency room showed atrial fibrillation with a rapid ventricular response. Subsequent EKG shows normal sinus rhythm with a left bundle-branch block pattern and nonspecific ST-T wave changes. Chest x-ray did not reveal any acute process. Blood pressure 130/70 with a heart rate currently in the 70s, 100% on room air patient was given a bolus of IV Cardizem, converted to normal sinus rhythm. She was also given a subsequent oral dose but not started on any drip. No anticoagulation was initiated. White blood cell count on admission 5.0, hemoglobin 11.1, platelet count 189. Sodium 141, potassium 3.1, BUN 28, creatinine 2.2. Initial troponin 0.036, BNP level 1530. At the time of my examination, patient is lying down in the stretcher in the emergency room, overall feels well, no dizziness or palpitations at present. I did have a lengthy discussion with the patient and her family regarding the importance of anticoagulation for stroke prevention. Past Medical History Past Medical History: Cancer, Diabetes Mellitus, Hypertension, Osteoarthritis (OA), Renal Disease Additional Past Medical History / Comment(s): HX "sciatica." PAIN IN BUTTOCKS AND DOWN LEGS, NUMBNESS IN TOES-now resolved. HX OF FALLS, FX 2 RIBS. kidney stones. RENAL DISEASE STAGE 4 (STATES IMPROVED)., SKIN CANCER, STATES SHE HAS DIFFICULTY PICKING UP HER FEET WHEN SHE WALKS OR GOING UP A CURB- SHE SCHUFFLES WHEN SHE WALKS., STATES LEFT LEG GOES NUMB AT TIMES, BALANCE PROBLEMS. BP has been running low at home recently-feels dizzy( to call PCP), hx gout History of Any Multi-Drug Resistant Organisms: None Reported Past Surgical History: Hysterectomy Additional Past Surgical History / Comment(s): SKIN CA EXC BACK and face, RT Hand & ELBOW. PAIN PROCEDURES. Past Anesthesia/Blood Transfusion Reactions: Family History of Problems w/ Anesthesia Additional Past Anesthesia/Blood Transfusion Reaction / Comment(s): DAUGHTER=PONV Past Psychological History: No Psychological Hx Reported Smoking Status: Never smoker - Past Family History Daughter(s) Family Medical History: Cancer, Pulmonary Embolus Father Family Medical History: Cancer Additional Family Medical History / Comment(s): BLADDER CANCER Medications and Allergies Home Medications Medication Instructions Recorded Confirmed Type Atenolol [Tenormin] 25 mg PO DAILY 06/04/15 08/14/19 History Ergocalciferol [Vitamin D2] 50,000 unit PO Q14D 12/09/15 08/14/19 History Insulin Lispro Protamin/Lispro See Protocol SQ QAM 12/09/15 08/14/19 History [humaLOG Mix 75-25 Kwikpen] Potassium Citrate [Urocit-K] 10 meq PO DAILY 12/09/15 08/14/19 History Gabapentin [Neurontin] 100 mg PO DAILY 09/23/16 08/14/19 History Turmeric Root Extract [Turmeric] 400 mg PO DAILY 11/03/18 08/14/19 History Calcitriol [Rocaltrol] 0.25 mcg PO MOTUWETHFR 08/14/19 08/14/19 History Allergies Allergy/AdvReac Type Severity Reaction Status Date / Time levofloxacin [From Levaquin] Allergy SHORTNESS Verified 08/14/19 13:56 OF BREATH Physical Exam Vitals: Vital Signs Temp Pulse Resp BP Pulse Ox 08/14/19 14:16 77 16 99 08/14/19 13:00 80 19 143/80 100 08/14/19 12:30 95 19 132/78 100 08/14/19 12:00 100 16 130/77 100 08/14/19 11:46 113 H 16 130/77 100 08/14/19 11:30 114 H 20 100 08/14/19 11:12 97.9 F 158 H 18 110/92 97 08/14/19 11:10 100 Intake and Output 08/13/19 08/14/19 08/14/19 22:59 06:59 14:59 Other: Weight 65.771 kg PHYSICAL EXAMINATION: GENERAL: 89-year-old female in no acute distress at the time of my examination HEENT: Head is atraumatic, normocephalic. Pupils equal, round. Sclera anicteric. Conjunctiva are clear. Mucous membranes of the mouth are moist. Neck is supple. There is no elevated jugular venous pressure. No carotid bruit is heard. Patient has several reddened areas noted on the face where she has skin cancer, lesion also noted on her right ear. HEART EXAMINATION: Heart S1 and S2 1 systolic murmur is heard CHEST EXAMINATION: Lungs are clear to auscultation and precussion. No chest wall tenderness is noted on palpation or with deep breathing. ABDOMEN: Soft, nontender. Bowel sounds are heard. No organomegaly noted. EXTREMITIES: 2+ peripheral pulses with no evidence of peripheral edema and no calf tenderness noted. NEUROLOGIC patient is awake, alert and oriented 3 . Results 08/14/19 11:33 08/14/19 11:33 Cardiac Enzymes 08/14/19 08/14/19 Range/Units 11:33 11:33 AST 23 (14-36) U/L Troponin I 0.036 H* (0.000-0.034) ng/mL Coagulation 08/14/19 Range/Units 11:33 PT 10.0 (9.0-12.0) sec APTT 22.2 (22.0-30.0) sec CBC 08/14/19 Range/Units 11:33 WBC 5.0 (3.8-10.6) k/uL RBC 3.56 L (3.80-5.40) m/uL Hgb 11.1 L (11.4-16.0) gm/dL Hct 32.3 L (34.0-46.0) % Plt Count 189 (150-450) k/uL Comprehensive Metabolic Panel 08/14/19 Range/Units 11:33 Sodium 141 (137-145) mmol/L Potassium 3.1 L (3.5-5.1) mmol/L Chloride 112 H (98-107) mmol/L Carbon Dioxide 17 L (22-30) mmol/L BUN 28 H (7-17) mg/dL Creatinine 2.25 H (0.52-1.04) mg/dL Glucose 254 H (74-99) mg/dL Calcium 8.4 (8.4-10.2) mg/dL AST 23 (14-36) U/L ALT 19 (9-52) U/L Alkaline Phosphatase 60 (38-126) U/L Total Protein 6.1 L (6.3-8.2) g/dL Albumin 3.3 L (3.5-5.0) g/dL Current Medications Generic Name Dose Route Start Last Admin Trade Name Freq PRN Reason Stop Dose Admin Acetaminophen 1,000 mg 08/14/19 13:34 Tylenol Tab PO DAILY PRN Pain Atenolol 25 mg 08/14/19 13:34 Tenormin PO DAILY PRN Blood Pressure - High Docusate Sodium 100 mg 08/14/19 13:31 Colace PO BID PRN Constipation Ergocalciferol 50,000 unit 08/14/19 14:00 Vitamin D2 PO MO [facility] Ferrous Sulfate 325 mg 08/15/19 09:00 Feosol PO DAILY [facility] Gabapentin 100 mg 08/15/19 09:00 Neurontin PO DAILY [facility] Naloxone HCl 0.2 mg 08/14/19 13:31 Narcan IV Q2M PRN Opioid Reversal Ondansetron HCl 4 mg 08/14/19 13:31 Zofran IVP Q8HR PRN Nausea And Vomiting Potassium Citrate 10 meq 08/15/19 09:00 Urocit-K PO DAILY [facility] Tramadol HCl 50 mg 08/14/19 13:31 Ultram PO Q6H PRN Moderate Pain Intake and Output 08/13/19 08/14/19 08/14/19 22:59 06:59 14:59 Other: Weight 65.771 kg Patient Weight 08/15/19 06:59 Weight 65.771 kg 08/14/19 11:33 08/14/19 11:33 EKG Interpretations (text) Initial EKG shows atrial fibrillation with a rapid ventricular response. Subsequent EKG shows normal sinus rhythm with a left bundle-branch block pattern and nonspecific ST-T wave changes Assessment and Plan Plan: Assessment and plan #1 atrial fibrillation with rapid ventricular response, appears to be of new onset for the patient, paroxysmal, currently in normal sinus rhythm #2 hypertension #3 diabetes #4 hyperlipidemia #5 multiple areas of skin cancer #6 abnormal renal function, likely secondary to dehydration #7 hypokalemia #8 recent weight loss Plan We will obtain an echocardiogram with Doppler study, obtain TSH and free T4. We will start the patient on Eliquis, discontinue the when necessary atenolol and start the patient on oral beta syd. Replace potassium. We will also check orthostatic heart rate and blood pressure every shift, patient symptoms of dizziness may be related to paroxysmal A. fib could also be related to orthostatic hypotension. Hydrate the patient. DNP note has been reviewed, I agree with a documented findings and plan of care. Patient was seen and examined.
[2019-08-14] MEDS: POTASSIUM CHLORIDE ER 20 MEQ TAB.ER PO SCH ×3 (17:04→21:29)
[2019-08-14] MEDS: APIXABAN 2.5 MG TABLET PO SCH (20:29)
[2019-08-14 21:02] LABS: Glucose,Whole Blood 220 mg/dL (75-99)
[2019-08-14] MEDS: METOPROLOL TARTRATE 25 MG TAB PO SCH (21:29)
[2019-08-14] MEDS: SODIUM CHLORIDE 0.9% 1,000 ML IV SCH (21:29)
[2019-08-15 06:19] LABS: Glucose,Whole Blood 215 mg/dL (75-99)
[2019-08-15] MEDS: SODIUM CHLORIDE 0.9% 1,000 ML IV SCH ×3 (06:23→21:02)
[2019-08-15] MEDS: INSULIN ASPART (NovoLOG) 100 UNIT/ML VIAL SQ SCH ×4 (07:07→21:02)
--- NOTE | 2019-08-15 08:49 | ECHOF ---
Referral Reason:afib MEASUREMENTS -------- HEIGHT: 152.4 cm WEIGHT: 65.8 kg BP: 143/80 IVSd: 1.2 cm (0.6 - 1.1) LVIDd: 4.1 cm (3.9 - 5.3) LVPWd: 1.4 cm (0.6 - 1.1) IVSs: 1.4 cm LVIDs: 3.5 cm LVPWs: 1.4 cm LAESV Index (A-L): 31.57 ml/m Ao Diam: 3.1 cm (2.0 - 3.7) AV Cusp: 1.0 cm (1.5 - 2.6) LA Diam: 2.8 cm (2.7 - 3.8) MV EXCURSION: 13.189 mm (> 18.000) MV EF SLOPE: 55 mm/s (70 - 150) EPSS: 0.3 cm MV E Bari: 0.46 m/s MV DecT: 249 ms MV A Bari: 0.02 m/s MV E/A Ratio: 18.80 RAP: 5.00 mmHg RVSP: 38.74 mmHg TAPSE: 23.25 mm FINDINGS -------- Atrial fibrillation. This was a technically adequate study. The left ventricular size is normal. There is mild concentric left ventricular hypertrophy. Overa ll left ventricular systolic function is low-normal with, an EF between 50 - 55 %. Left ventricular fillimg pressure cannot be estimated due to Atrial fibrillation. The right ventricle is normal in size. The left atrium is mildly dilated. LA is midly dilated 29-33ml/m2. The right atrial size is normal. There is doming of the aortic valve leaflets. There is mild aortic valve sclerosis. There is no e vidence of aortic regurgitation. Mild mitral annular calcification present. Mild mitral regurgitation is present. Mild tricuspid regurgitation present. There is mild pulmonary hypertension. The right ventricular systolic pressure, as measured by Doppler, is 38.74mmHg. There is no pulmonic regurgitation present. The aortic root size is normal. There is no pericardial effusion. CONCLUSIONS -------- 1. Atrial fibrillation. 2. This was a technically adequate study. 3. The left ventricular size is normal. 4. There is mild concentric left ventricular hypertrophy. 5. Overall left ventricular systolic function is low-normal with, an EF between 50 - 55 %. 6. Left ventricular fillimg pressure cannot be estimated due to Atrial fibrillation. 7. The right ventricle is normal in size. 8. The left atrium is mildly dilated. 9. LA is midly dilated 29-33ml/m2. 10. The right atrial size is normal. 11. There is doming of the aortic valve leaflets. 12. There is mild aortic valve sclerosis. 13. Mild mitral annular calcification present. 14. Mild mitral regurgitation is present. 15. Mild tricuspid regurgitation present. 16. There is mild pulmonary hypertension. 17. The right ventricular systolic pressure, as measured by Doppler, is 38.74mmHg. 18. There is no pulmonic regurgitation present. 19. The aortic root size is normal. 20. There is no pericardial effusion. TRAVEL OCCUPATIONAL THERAPIST: Ira Saab RDCS
[2019-08-15] MEDS: APIXABAN 2.5 MG TABLET PO SCH ×2 (08:58→21:01)
[2019-08-15] MEDS: METOPROLOL TARTRATE 25 MG TAB PO SCH ×2 (08:58→21:01)
[2019-08-15] MEDS: GABAPENTIN 100 MG CAP PO SCH (08:59)
[2019-08-15] MEDS: POTASSIUM CITRATE 10 MEQ TABLET.ER PO SCH (08:59)
[2019-08-15] MEDS: FERROUS SULFATE 325 MG TAB PO SCH (08:59)
[2019-08-15 09:41] LABS: Basophils % (A) 0 %; Eosinophils # (A) 0.1 k/uL (0-0.7); Eosinophils % (A) 1 %; HCT 30.3 % (34.0-46.0); HGB 10.4 gm/dL (11.4-16.0); Lymphocytes # (A) 1.1 k/uL (1.0-4.8); Lymphocytes % (A) 31 %; MCH 31.7 pg (25.0-35.0); MCHC 34.2 g/dL (31.0-37.0); MCV 92.8 fL (80.0-100.0); Mean Platelet Volume 7.7; Monocytes # (A) 0.2 k/uL (0-1.0); Monocytes % (A) 6 %; Neutrophils # (A) 2.2 k/uL (1.3-7.7); Neutrophils % (A) 61 %; Platelet Count 152 k/uL (150-450); Poikilocytosis Slight; RBC 3.27 m/uL (3.80-5.40); RDW 15.1 % (11.5-15.5); WBC 3.6 k/uL (3.8-10.6)
[2019-08-15 10:09] LABS: Potassium 3.7 mmol/L (3.5-5.1)
[2019-08-15 11:47] LABS: Glucose,Whole Blood 137 mg/dL (75-99)
[2019-08-15] MEDS ORDERED: DEXTROSE 5% IN WATER 100 ML with AMIODARONE 150 MG IV ONE (13:03)
[2019-08-15] MEDS ORDERED: AMIODARONE 360 MG in DEXTROSE 5% IN WATER 200 ML IV ONE ×2 (13:03)
--- NOTE | 2019-08-15 15:48 | PN ---
PROGRESS NOTE This patient was admitted with dizziness. The patient was found to be in atrial fibrillation with a rapid ventricular response. He subsequently converted to the normal sinus rhythm. Patient has been having intermittent dizziness for last 1 month with a rapid heartbeat. Most likely patient has been having paroxysmal episodes of atrial fibrillation with an RVR. In view of the significant symptoms associated, we will start the patient on amiodarone drip today and then discharged on amiodarone. The patient had minimal elevation in the troponin which is probably due to the atrial fibrillation with an RVR. Echocardiogram does not show any wall motion abnormality. The patient will be ambulated and can be discharged home tomorrow. MMODL / IJN: [id number] /
--- NOTE | 2019-08-15 16:35 | P.HPIM ---
History of Present Illness H&P Date: 08/15/19 Chief Complaint: Shortness of breath, dizziness, palpitations This is an 89-year-old female presented to the ER with worsening shortness of breath, dizziness and palpitations upon standing up. Reports she had not been eating well, lost approximately 7 pounds in a short time frame. Denies chest pain. Denies any nausea vomiting or diarrhea. Denied diaphoresis. Denied abdo bushra tenderness. Denies extremity edema. Echo reported EF of 50-55%. EKG reported A. fib with RVR. Bolused with IV Cardizem, converted to sinus rhythm and did not require drip. Received oral dose of Cardizem. Beta syd initiated. Throughout the night patient continued having bursts of A. fib, amiodarone bolus ordered by cardiology. Anticoagulated on Eliquis. Creatinine 1.96, baseline is 2.18. Review of Systems ROS Statement: Those systems with pertinent positive or pertinent negative responses have been documented in the HPI. ROS Other: All systems not noted in ROS Statement are negative. Past Medical History Past Medical History: Cancer, Diabetes Mellitus, Hypertension, Osteoarthritis (OA), Renal Disease Additional Past Medical History / Comment(s): HX "sciatica." PAIN IN BUTTOCKS AND DOWN LEGS, NUMBNESS IN TOES-now resolved. HX OF FALLS, FX 2 RIBS. kidney stones. RENAL DISEASE STAGE 4 (STATES IMPROVED)., SKIN CANCER, STATES SHE HAS DIFFICULTY PICKING UP HER FEET WHEN SHE WALKS OR GOING UP A CURB- SHE SCHUFFLES WHEN SHE WALKS., STATES LEFT LEG GOES NUMB AT TIMES, BALANCE PROBLEMS. BP has been running low at home recently-feels dizzy( to call PCP), hx gout History of Any Multi-Drug Resistant Organisms: None Reported Past Surgical History: Hysterectomy Additional Past Surgical History / Comment(s): SKIN CA EXC BACK and face, RT Hand & ELBOW. PAIN PROCEDURES. Past Anesthesia/Blood Transfusion Reactions: Family History of Problems w/ Anesthesia Additional Past Anesthesia/Blood Transfusion Reaction / Comment(s): DAUGHTER=PONV Past Psychological History: No Psychological Hx Reported Smoking Status: Never smoker Past Alcohol Use History: None Reported Past Drug Use History: None Reported - Past Family History Daughter(s) Family Medical History: Cancer, Pulmonary Embolus Father Family Medical History: Cancer Additional Family Medical History / Comment(s): BLADDER CANCER Medications and Allergies Home Medications Medication Instructions Recorded Confirmed Type Atenolol [Tenormin] 25 mg PO DAILY 06/04/15 08/14/19 History Ergocalciferol [Vitamin D2] 50,000 unit PO Q14D 12/09/15 08/14/19 History Insulin Lispro Protamin/Lispro See Protocol SQ QAM 12/09/15 08/14/19 History [humaLOG Mix 75-25 Kwikpen] Potassium Citrate [Urocit-K] 10 meq PO DAILY 12/09/15 08/14/19 History Gabapentin [Neurontin] 100 mg PO DAILY 09/23/16 08/14/19 History Turmeric Root Extract [Turmeric] 400 mg PO DAILY 11/03/18 08/14/19 History Calcitriol [Rocaltrol] 0.25 mcg PO MOTUWETHFR 08/14/19 08/14/19 History Allergies Allergy/AdvReac Type Severity Reaction Status Date / Time levofloxacin [From Levaquin] Allergy SHORTNESS Verified 08/14/19 13:56 OF BREATH Physical Exam Vitals: Vital Signs Temp Pulse Pulse Resp BP BP BP 08/15/19 03:18 97.6 F 66 18 139/75 08/15/19 00:00 97.9 F 70 17 155/79 08/14/19 20:53 97.9 F 78 18 174/78 08/14/19 20:00 78 18 08/14/19 18:26 98.5 F 83 18 159/76 08/14/19 14:16 77 16 08/14/19 13:00 80 19 143/80 08/14/19 12:30 95 19 132/78 08/14/19 12:00 100 16 130/77 08/14/19 11:46 113 H 16 130/77 08/14/19 11:30 114 H 20 08/14/19 11:12 97.9 F 158 H 18 110/92 08/14/19 11:10 Pulse Ox 08/15/19 03:18 98 08/15/19 00:00 97 08/14/19 20:53 98 08/14/19 20:00 08/14/19 18:26 98 08/14/19 14:16 99 08/14/19 13:00 100 08/14/19 12:30 100 08/14/19 12:00 100 12/09/19 11:46 100 08/14/19 11:30 100 08/14/19 11:12 97 08/14/19 11:10 100 Intake and Output 08/14/19 08/15/19 08/15/19 22:59 06:59 14:59 Intake Total 200 500 120 Balance 200 500 120 Intake: Intake, IV Titration 200 500 Amount Sodium Chloride 0.9% 1, 200 500 000 ml @ 100 mls/hr IV . Q10H [facility] Rx#:[id number] Oral 120 Other: Voiding Method Toilet Toilet # Voids 1 Weight 65.771 kg 68.5 kg PHYSICAL EXAM: VITAL SIGNS: As above GENERAL: Sitting up in chair, no acute distress HEENT: Conjunctivae normal. eyes normal. Oral mucosa moist NECK: No JVD. No thyroid enlargement. No LNs CARDIOVASCULAR: S1, S2 regular. Systolic murmur. RESPIRATION: Breath sounds diminished in the bases. No rhonchi or crackles. No bronchial breathing. ABDOMEN: Soft, nontender . No guarding. no masses palpable. No ascites, No hepatosplenomegaly.Bowel sounds heard. LEGS: No edema. no swelling. PSYCHIATRY: Alert and oriented X3, mood and affect normal. NERVOUS SYSTEM: Cranial N 2-12 grossly normal. Moves all 4 limbs. Diffuse weakness No focal deficits. Strength and sensation grossly intact.. Skin: no rash . Lymphatic system. No LN neck axilla. Results CBC & Chem 7: 08/15/19 09:23 08/15/19 09:23 Labs: Abnormal Lab Results - Last 24 Hours (Table) 08/14/19 08/14/19 08/14/19 Range/Units 11:33 11:33 11:33 WBC (3.8-10.6) k/uL RBC 3.56 L (3.80-5.40) m/uL Hgb 11.1 L (11.4-16.0) gm/dL Hct 32.3 L (34.0-46.0) % Potassium 3.1 L (3.5-5.1) mmol/L Chloride 112 H (98-107) mmol/L Carbon Dioxide 17 L (22-30) mmol/L BUN 28 H (7-17) mg/dL Creatinine 2.25 H (0.52-1.04) mg/dL Glucose 254 H (74-99) mg/dL POC Glucose (mg/dL) (75-99) mg/dL Total Bilirubin 1.5 H (0.2-1.3) mg/dL Troponin I 0.036 H* (0.000-0.034) ng/mL Total Protein 6.1 L (6.3-8.2) g/dL Albumin 3.3 L (3.5-5.0) g/dL 08/14/19 08/14/19 08/14/19 Range/Units 17:39 21:00 23:57 WBC (3.8-10.6) k/uL RBC (3.80-5.40) m/uL Hgb (11.4-16.0) gm/dL Hct (34.0-46.0) % Potassium (3.5-5.1) mmol/L Chloride (98-107) mmol/L Carbon Dioxide (22-30) mmol/L BUN (7-17) mg/dL Creatinine (0.52-1.04) mg/dL Glucose (74-99) mg/dL POC Glucose (mg/dL) 220 H (75-99) mg/dL Total Bilirubin (0.2-1.3) mg/dL Troponin I 0.104 H* 0.185 H* (0.000-0.034) ng/mL Total Protein (6.3-8.2) g/dL Albumin (3.5-5.0) g/dL 08/15/19 08/15/19 Range/Units 06:18 09:23 WBC 3.6 L (3.8-10.6) k/uL RBC 3.27 L (3.80-5.40) m/uL Hgb 10.4 L (11.4-16.0) gm/dL Hct 30.3 L (34.0-46.0) % Potassium (3.5-5.1) mmol/L Chloride (98-107) mmol/L Carbon Dioxide (22-30) mmol/L BUN (7-17) mg/dL Creatinine (0.52-1.04) mg/dL Glucose (74-99) mg/dL POC Glucose (mg/dL) 215 H (75-99) mg/dL Total Bilirubin (0.2-1.3) mg/dL Troponin I (0.000-0.034) ng/mL Total Protein (6.3-8.2) g/dL Albumin (3.5-5.0) g/dL Thrombosis Risk Factor Assmnt - Choose All That Apply Each Factor Represents 1 point: Obesity (BMI >25) Each Risk Factor Represents 2 Points: Malignancy Each Risk Factor Represents 3 Points: Age 75 years or older Thrombosis Risk Factor Assessment Total Risk Factor Score: 6 Thrombosis Risk Factor Assessment Level: High Risk Assessment and Plan Assessment: A. fib with RVR, possibly new onset, paroximal Recent weight loss of 7 pounds Diabetes mellitus Hypertension Osteoarthritis Chronic renal failure, stage IV, baseline 2. 2 skin cancers Hypokalemia Plan: Continue on current medication regime ,monitoring and symptomatic treatment. Diuretics as per cardiology. Anticoagulated on Eliquis. Gentle IV fluid hydration. Follow closely with cardiology. Further recommendations to follow. The impression and plan of care has been dictated as directed. : I performed a history and examination of this patient, discussed the same with the dictator. I agree with the dictator's note ,documented as a scribe. Any additional findings or plans will be noted.
[2019-08-15 16:43] LABS: Glucose,Whole Blood 224 mg/dL (75-99)
[2019-08-15] MEDS: amLODIPine 5 MG TAB PO SCH (18:01)
[2019-08-15] MEDS: PANTOPRAZOLE 40 MG/10 ML VIAL IVP SCH (18:05)
[2019-08-15 19:58] LABS: Glucose,Whole Blood 210 mg/dL (75-99)
[2019-08-15] MEDS: AMIODARONE 300 MG in DEXTROSE 5% IN WATER 250 ML IV SCH ×2 (20:25)
[2019-08-15 23:35] LABS: Glucose,Whole Blood 61 mg/dL (75-99)
[2019-08-15 23:51] LABS: Glucose,Whole Blood 88 mg/dL (75-99)
[2019-08-16 06:23] LABS: Glucose,Whole Blood 235 mg/dL (75-99)
[2019-08-16 06:24] LABS: Basophils % (A) 0 %; Eosinophils # (A) 0.1 k/uL (0-0.7); Eosinophils % (A) 1 %; HCT 29.1 % (34.0-46.0); HGB 9.9 gm/dL (11.4-16.0); Lymphocytes # (A) 1.1 k/uL (1.0-4.8); Lymphocytes % (A) 20 %; MCH 31.3 pg (25.0-35.0); MCV 92.2 fL (80.0-100.0); Mean Platelet Volume 7.3; Monocytes # (A) 0.2 k/uL (0-1.0); Monocytes % (A) 5 %; Neutrophils # (A) 3.8 k/uL (1.3-7.7); Neutrophils % (A) 73 %; Platelet Count 137 k/uL (150-450); Poikilocytosis Slight; RBC 3.16 m/uL (3.80-5.40); RDW 14.9 % (11.5-15.5); WBC 5.2 k/uL (3.8-10.6)
[2019-08-16 06:42] LABS: Calcium 8.1 mg/dL (8.4-10.2); Potassium 3.9 mmol/L (3.5-5.1)
[2019-08-16] MEDS: APIXABAN 2.5 MG TABLET PO SCH (08:59)
[2019-08-16] MEDS: amLODIPine 5 MG TAB PO SCH (08:59)
[2019-08-16] MEDS: POTASSIUM CITRATE 10 MEQ TABLET.ER PO SCH (08:59)
[2019-08-16] MEDS: METOPROLOL TARTRATE 25 MG TAB PO SCH (08:59)
[2019-08-16] MEDS: PANTOPRAZOLE 40 MG/10 ML VIAL IVP SCH (08:59)
[2019-08-16] MEDS: GABAPENTIN 100 MG CAP PO SCH (08:59)
[2019-08-16] MEDS: INSULIN ASPART (NovoLOG) 100 UNIT/ML VIAL SQ SCH ×2 (08:59→12:42)
[2019-08-16] MEDS: FERROUS SULFATE 325 MG TAB PO SCH (08:59)
[2019-08-16] MEDS: AMIODARONE 300 MG in DEXTROSE 5% IN WATER 250 ML IV SCH ×2 (12:10)
[2019-08-16 12:25] LABS: Glucose,Whole Blood 233 mg/dL (75-99)
[2019-08-16 13:59] VITALS: BP 131/58; PULSE 68; RESP 16; TEMP 97.9
[2019-08-16] MEDS ORDERED: AMIODARONE 200 MG TAB PO SCH ×2 (14:54→16:45)
--- NOTE | 2019-08-16 15:43 | P.DS ---
Providers Date of admission: 08/14/19 13:31 Expected date of discharge: 08/16/19 Attending physician: Emil Portillo Consults: 08/14/19 13:33 Consult Physician Routine Consulting Provider: Valerie Paredes Consult Reason/Comments: new onset a fib Do you want consulting provider notified?: Yes Primary care physician: Emil Portillo Hospital Course: Final Diagnoses: A. fib with RVR, possibly new onset, paroximal Recent weight loss of 7 pounds Diabetes mellitus Hypertension Osteoarthritis Chronic renal failure, stage IV, baseline 2. 2 skin cancers Hypokalemia Hospital course:This is an 89-year-old female presented to the ER with worsening shortness of breath, dizziness and palpitations upon standing up. Reports she had not been eating well, lost approximately 7 pounds in a short time frame. Denies chest pain. Denies any nausea vomiting or diarrhea. Denied diaphoresis. Denied abdominal tenderness. Denies extremity edema. Echo reported EF of 50- 55%. EKG reported A. fib with RVR. Bolused with IV Cardizem, converted to sinus rhythm and did not require drip. Received oral dose of Cardizem. Beta syd initiated. Throughout the night patient continued having bursts of A. fib, amiodarone bolus ordered by cardiology. Anticoagulated on Eliquis. Creatinine 1.96, baseline is 2.18. Weaned off of amiodarone drip. Cardiology initiating oral amiodarone. Patient will be discharged home in a stable condition with car prognosis pending final DC recommendations including amiodarone taper Rx and clearance from cardiology. EXAM: GENERAL: Alert and oriented 3 no acute distress CARDIOVASCULAR: S1, S2 regular. Systolic murmur. RESPIRATION: Breath sounds diminished in the bases. No rhonchi or crackles. ABDOMEN: Soft, nontender . No guarding. no masses palpable. Bowel sounds heard. NERVOUS SYSTEM: No focal deficits. The impression and plan of care has been dictated as directed. : I performed a history and examination of this patient, discussed the same with the dictator. I agree with the dictator's note ,documented as a scribe. Any additional findings or plans will be noted. Patient Condition at Discharge: Stable Plan - Discharge Summary New Discharge Prescriptions: New Docusate [Colace] 100 mg PO BID PRN #60 cap PRN Reason: Constipation Apixaban [Eliquis] 2.5 mg PO BID #60 tablet Ferrous Sulfate [Iron (65 MG Elemental)] 325 mg PO DAILY #30 tab Metoprolol Tartrate [Lopressor] 50 mg PO BID #60 tab amLODIPine [Norvasc] 5 mg PO DAILY #30 tab Pantoprazole [Protonix] 40 mg PO AC-BRKFST #30 tablet. Amiodarone [Cordarone] 200 mg PO BID #60 tab Discontinued Atenolol [Tenormin] 25 mg PO DAILY No Action Potassium Citrate [Urocit-K] 10 meq PO DAILY Ergocalciferol [Vitamin D2] 50,000 unit PO Q14D Insulin Lispro Protamin/Lispro [humaLOG Mix 75-25 Kwikpen] See Protocol SQ QAM Gabapentin [Neurontin] 100 mg PO DAILY Turmeric Root Extract [Turmeric] 400 mg PO DAILY Calcitriol [Rocaltrol] 0.25 mcg PO MOTUWETHFR Discharge Medication List Ergocalciferol [Vitamin D2] 50,000 unit PO Q14D 12/09/15 [History] Insulin Lispro Protamin/Lispro [humaLOG Mix 75-25 Kwikpen] See Protocol SQ QAM 12/09/15 [History] Potassium Citrate [Urocit-K] 10 meq PO DAILY 12/09/15 [History] Gabapentin [Neurontin] 100 mg PO DAILY 09/23/16 [History] Turmeric Root Extract [Turmeric] 400 mg PO DAILY 11/03/18 [History] Calcitriol [Rocaltrol] 0.25 mcg PO MOTUWETHFR 08/14/19 [History] Amiodarone [Cordarone] 200 mg PO BID #60 tab 08/16/19 [Rx] Apixaban [Eliquis] 2.5 mg PO BID #60 tablet 08/16/19 [Rx] Docusate [Colace] 100 mg PO BID PRN #60 cap 08/16/19 [Rx] Ferrous Sulfate [Iron (65 MG Elemental)] 325 mg PO DAILY #30 tab 08/16/19 [Rx] Metoprolol Tartrate [Lopressor] 50 mg PO BID #60 tab 08/16/19 [Rx] Pantoprazole [Protonix] 40 mg PO AC-BRKFST #30 tablet. 08/16/19 [Rx] amLODIPine [Norvasc] 5 mg PO DAILY #30 tab 08/16/19 [Rx] Follow up Appointment(s)/Referral(s): Emil Portillo MD [Primary Care Provider] - 3 Days Ambulatory/Diagnostic Orders: Complete Blood Count w/diff [LAB.AMB] Time Frame: 3 Days, Location: None Selected Activity/Diet/Wound Care/Special Instructions: Amiodarone taper Rx as per cardiology. Confirm cardiology follow-up appointment prior to discharge.
--- NOTE | 2019-08-16 15:59 | P.PN ---
Subjective Progress Note Date: 08/16/19 This is an 89-year-old female with history of diabetes, hypertension, hyperlipidemia, skin cancer, who presents to the emergency room with symptoms of dizziness and near syncope. She states that the dizziness occurs mostly when she goes to stand up, she feels like she might pass out and she sits down. It does not happen on every occasion, but it has been going on and off for quite some time. She does state that at the time this happened she does feel her heart racing fast and beating irregular. Patient also admits to having some intermittent shortness of breath. The patient also states that she has lost almost 20 pounds of weight within the past couple of months, she states that priya rything she eats goes directly through her and she has diarrhea and loose stools. She denies ever having had a colonoscopy or GI evaluation. Overall her appetite has been poor. Her EKG on presentation to the emergency room showed atrial fibrillation with a rapid ventricular response. Subsequent EKG shows normal sinus rhythm with a left bundle-branch block pattern and nonspecific ST-T wave changes. Chest x-ray did not reveal any acute process. Blood pressure 130/70 with a heart rate currently in the 70s, 100% on room air patient was given a bolus of IV Cardizem, converted to normal sinus rhythm. She was also given a subsequent oral dose but not started on any drip. No anticoagulation was initiated. White blood cell count on admission 5.0, hemoglobin 11.1, platelet count 189. Sodium 141, potassium 3.1, BUN 28, creatinine 2.2. Initial troponin 0.036, BNP level 1530. At the time of my examination, patient is lying down in the stretcher in the emergency room, overall feels well, no dizziness or palpitations at present. I did have a lengthy discussion with the patient and her family regarding the importance of anticoagulation for stroke prevention. 08/16/2019 Patient was seen and examined today, continues to have bursts of atrial fibrillation however much less. We initiated her yesterday on IV amiodarone in today we'll put her on 200 mg of amiodarone 3 times a day. She should be able to be discharged home today from our perspective. Overall the patient feels well, no complaints. Objective - Vital Signs Vital signs: Vital Signs Temp 97.9 F 08/16/19 12:00 Pulse 68 08/16/19 12:00 Resp 16 08/16/19 12:00 BP 131/58 08/16/19 12:00 Pulse Ox 100 08/16/19 12:00 Intake & Output 08/15/19 08/16/19 08/16/19 18:59 06:59 18:59 Intake Total 600 250 240 Balance 600 250 240 Weight 67.5 kg Intake: Intake, IV Titration 250 Amount Amiodarone 300 mg In 250 Dextrose 5% in Water 250 ml @ 0.5 MG/MIN 25 mls/hr IV .Q10H [facility] Rx#: [id number] Oral 600 240 Other: Voiding Method Toilet Toilet Toilet # Voids 1 1 - Exam PHYSICAL EXAMINATION: GENERAL: 89-year-old female in no acute distress at the time of my examination HEENT: Head is atraumatic, normocephalic. Pupils equal, round. Sclera anicteric. Conjunctiva are clear. Mucous membranes of the mouth are moist. Neck is supple. There is no elevated jugular venous pressure. No carotid bruit is heard. Patient has several reddened areas noted on the face where she has skin cancer, lesion also noted on her right ear. HEART EXAMINATION: Heart S1 and S2 1 systolic murmur is heard CHEST EXAMINATION: Lungs are clear to auscultation and precussion. No chest wall tenderness is noted on palpation or with deep breathing. ABDOMEN: Soft, nontender. Bowel sounds are heard. No organomegaly noted. EXTREMITIES: 2+ peripheral pulses with no evidence of peripheral edema and no calf tenderness noted. NEUROLOGIC patient is awake, alert and oriented 3 - Labs CBC & Chem 7: 08/16/19 05:40 08/16/19 05:40 Labs: Abnormal Lab Results - Last 24 Hours (Table) 08/15/19 08/15/19 08/15/19 Range/Units 16:42 19:56 23:34 RBC (3.80-5.40) m/uL Hgb (11.4-16.0) gm/dL Hct (34.0-46.0) % Plt Count (150-450) k/uL Chloride (98-107) mmol/L Carbon Dioxide (22-30) mmol/L BUN (7-17) mg/dL Creatinine (0.52-1.04) mg/dL Glucose (74-99) mg/dL POC Glucose (mg/dL) 224 H 210 H 61 L (75-99) mg/dL Calcium (8.4-10.2) mg/dL 08/16/19 08/16/19 08/16/19 Range/Units 05:40 05:40 06:22 RBC 3.16 L (3.80-5.40) m/uL Hgb 9.9 L (11.4-16.0) gm/dL Hct 29.1 L (34.0-46.0) % Plt Count 137 L (150-450) k/uL Chloride 115 H (98-107) mmol/L Carbon Dioxide 18 L (22-30) mmol/L BUN 22 H (7-17) mg/dL Creatinine 1.93 H (0.52-1.04) mg/dL Glucose 218 H (74-99) mg/dL POC Glucose (mg/dL) 235 H (75-99) mg/dL Calcium 8.1 L (8.4-10.2) mg/dL 08/16/19 Range/Units 12:22 RBC (3.80-5.40) m/uL Hgb (11.4-16.0) gm/dL Hct (34.0-46.0) % Plt Count (150-450) k/uL Chloride (98-107) mmol/L Carbon Dioxide (22-30) mmol/L BUN (7-17) mg/dL Creatinine (0.52-1.04) mg/dL Glucose (74-99) mg/dL POC Glucose (mg/dL) 233 H (75-99) mg/dL Calcium (8.4-10.2) mg/dL Assessment and Plan Plan: Assessment and plan #1 atrial fibrillation with rapid ventricular response, appears to be of new onset for the patient, paroxysmal, currently in normal sinus rhythm #2 hypertension #3 diabetes #4 hyperlipidemia #5 multiple areas of skin cancer #6 abnormal renal function, likely secondary to dehydration #7 hypokalemia #8 recent weight loss Plan Echocardiogram with Doppler study revealed a normal left ventricular systolic function. IV amiodarone will be discontinued and patient will be started on 200 mg of amiodarone one tablet by mouth 3 times a day from our perspective she may be able to be discharged home today. We'll make her a follow-up appointment in the office post discharge. DNP note has been reviewed, I agree with a documented findings and plan of care. Patient was seen and examined.
[2019-08-16] MEDS ORDERED: METOPROLOL TARTRATE 50 MG TAB PO SCH (21:00)
[2019-08-17] MEDS ORDERED: PANTOPRAZOLE 40 MG TABLET PO SCH (07:30)
== END 2019-08-16 17:18 | disposition home or self-care (01) | DRG 309 ==
LOC: EC 11:01 → 3SCARD 13:31
PROVIDERS: ADMIT Family Medicine; ATTEND Family Medicine
DX: I48.0 Paroxysmal atrial fibrillation (principal); N18.4 Chronic kidney disease, stage 4 (severe); E87.6 Hypokalemia; E86.0 Dehydration; I44.7 Left bundle-branch block, unspecified; R63.4 Abnormal weight loss; I12.9 Hypertensive chronic kidney disease with stage 1 through stage 4 chronic kidney disease, or unspecified chronic kidney disease; E11.22 Type 2 diabetes mellitus with diabetic chronic kidney disease; E78.5 Hyperlipidemia, unspecified; M19.90 Unspecified osteoarthritis, unspecified site; M10.9 Gout, unspecified; Z90.710 Acquired absence of both cervix and uterus; Z91.81 History of falling; Z79.899 Other long term (current) drug therapy; Z79.4 Long term (current) use of insulin; Z85.828 Personal history of other malignant neoplasm of skin; Z87.442 Personal history of urinary calculi; Z88.1 Allergy status to other antibiotic agents; Z80.52 Family history of malignant neoplasm of bladder; Z82.49 Family history of ischemic heart disease and other diseases of the circulatory system
CPT/HCPCS: 36415; 71045; 80048; 80053; 83735; 83880; 84484; 85025; 85610; 85730; 93005; 93306; 96361; 96374; 99291

== ENCOUNTER → 2019-09-13 | Outpatient (CLI) | payer MEDICARE ==
[2019-09-13 11:59] VITALS: BP 151/78; PULSE 67; RESP 18
--- NOTE | 2019-09-13 21:08 | P.PAINPG ---
Subjective Progress Note Date: 09/13/19 This is a follow-up visit for this 89 years old female with a chronic history of severe low back pain, she is diagnosed with lumbar spondylosis with lumbar facet arthropathy and lumbar degenerative disc disease, lumbar spinal stenosis, recently we have done lumbar epidural steroid injections under fluoroscopy guidance, and she is currently using Neurontin 300 mg daily and Tylenol arthritis when necessary, is getting prescription refills from her primary care, she denies any side effect of the medication and she reports that her pain improved significantly after we did lumbar epidural steroid injection, currently she is having minimal or no pain and she is able to ambulate, she denies any fever or night sweats denies any motor or sensory deficits Objective - Vital Signs Vital signs: Vital Signs Temp Pulse 67 09/13/19 11:46 Resp 18 09/13/19 11:46 BP 151/78 09/13/19 11:46 Pulse Ox 100 09/13/19 11:46 - Exam Physical Examinations : -Constitutiona : Cooperative , not in acute distress . -HEENT : nech : supple , no Lymphadenopathy , normal thyroid size . : eyes : no ptosis , no icterus, no photophobia . - neurologic : Cranial nerve II to XII intact , no focal neurological deffecit . -psychatric : alert , oriented X 3 , appropriate affect , intact judgment and insight . -Lymphatic : no Lymphadenopathy . - musculoskeltal : . Lumber spine moter stegnth lower extremities ,thigh and legs 5/5 Right side , 5/5 Left side Assessment and Plan Plan: Assessment and plan= low back pain secondary to lumbar degenerative disc disease and lumbar spinal stenosis and lumbar spondylosis with lumbar facet arthropathy, pain improved significantly after lumbar epidural steroid injection done recently, patient will follow up in the pain clinic when necessary and she will follow with her primary care regarding medications Time with Patient: Less than 30 PQRS Measure Charge Sheet Measure #130: Documentation of Current Meds in Medical Chart: Patient's medications documented in chart Measure #226: Tobacco Use: Screen & Cessation Intervention: Pt not a tobacco user Measure #111: Pneumonia Vaccination: Pneumococcal vaccine administered or previously received Measure #47: Advance Care Plan: Advance care planning discussed & documented, pt chose/unable to give Measure #412: Opioid Treatment Agreement: No documentation of signed opioid treatment agreement Measure #408: Opioid Therapy Follow-up Evaluation: Patient had NO f/u eval minimum every 3 months during opioid therapy Measure #317: Preventitive Care & Scrn High Bld Press & F/U: Pre-hypertensive or hypertensive BP documented, pt will f/u with PCP Measure #128: Body Mass Index (BMI) Screening & Follow-up: BMI documented ABOVE normal parameters - f/u documented Measure #131: Pain Assessment & Follow-up: Pain positive & plan documented, Pain negative & plan not documented, Follow-up PRN Measure #431: Unhealthy Alcohol Use Preventative Care & Scrn: Patient not identified as an unhealthy alcohol user PQRS Narrative: Smoking Status Never smoker Blood Pressure 151/78 Pain Intensity [None] 1 Scale Used Numeric (1 - 10) Hx Alcohol Use (MH) No Home Medications: Ambulatory Orders Ergocalciferol [Vitamin D2] 50,000 unit PO Q14D 12/09/15 Insulin Lispro Protamin/Lispro [humaLOG Mix 75-25 Kwikpen] See Protocol SQ QAM 12/09/15 Gabapentin [Neurontin] 300 mg PO DAILY 09/23/16 Turmeric Root Extract [Turmeric] 400 mg PO DAILY 11/03/18 Calcitriol [Rocaltrol] 0.25 mcg PO MOTUWETHFR 08/14/19 Apixaban [Eliquis] 2.5 mg PO BID #60 tablet 08/16/19 Docusate [Colace] 100 mg PO BID PRN #60 cap 08/16/19 Ferrous Sulfate [Iron (65 MG Elemental)] 325 mg PO DAILY #30 tab 08/16/19 Metoprolol Tartrate [Lopressor] 50 mg PO BID #60 tab 08/16/19 Amiodarone [Cordarone] 100 mg PO BID 09/08/19 Pantoprazole [Protonix] 40 mg PO DAILY 09/08/19 amLODIPine [Norvasc] 5 mg PO DAILY 09/08/19 Controlled Substance Measures - Controlled Substance Measures Is patient prescribed a controlled substance at discharge?: No
== END | disposition home or self-care (01) ==
LOC: PNWHC3 11:36
PROVIDERS: ATTEND Specialist
DX: M51.36 Other intervertebral disc degeneration, lumbar region (principal); M48.061 Spinal stenosis, lumbar region without neurogenic claudication; M47.816 Spondylosis without myelopathy or radiculopathy, lumbar region; M46.96 Unspecified inflammatory spondylopathy, lumbar region; Z79.891 Long term (current) use of opiate analgesic; Z79.899 Other long term (current) drug therapy; Z79.01 Long term (current) use of anticoagulants
CPT/HCPCS: 99211

== ENCOUNTER 2020-03-12 13:00 | Emergency (ER) | payer MEDICARE ==
[2020-03-12 13:14] VITALS: RESP 18; TEMP 98.6
--- NOTE | 2020-03-12 13:18 | ED ---
Fall HPI - General Stated Complaint: Fall Time Seen by Provider: 03/12/20 13:00 Source: patient, EMS, RN notes reviewed Mode of arrival: EMS - History of Present Illness Initial Comments: This is a 88-year-old female who states she got up from a chair and tripped on a rug falling on her left side hitting her head against a TV stand. She denies any loss of consciousness she does complain of some pain over the occipital mid scalp she had a lot of bleeding which was controlled by the patient. She comp lains of proximal left shoulder pain no pain to her lower extremities hips back. No reported other injuries other than a skin tear to left elbow. The fall occurred about 3 hours prior to arrival. Patient was brought in by EMS. She was noted have a elevated blood sugar of 407. He does have chronic A. fib and is on Elsandy TORRES Complaint: fall - Related Data Home Medications Medication Instructions Recorded Confirmed Ergocalciferol [Vitamin D2] 50,000 unit PO Q14D 12/09/15 03/12/20 Insulin Lispro Protamin/Lispro See Protocol SQ QAM 12/09/15 03/12/20 [humaLOG Mix 75-25 Kwikpen] Turmeric Root Extract [Turmeric] 500 mg PO DAILY 11/03/18 03/12/20 Calcitriol [Rocaltrol] 0.25 mcg PO MOTUWETHFR 08/14/19 03/12/20 Amiodarone [Cordarone] 200 mg PO DAILY@0900 09/08/19 03/12/20 Gabapentin [Neurontin] 300 mg PO HS 03/12/20 03/12/20 L.acidoph,Paracasei, B.lactis 1 cap PO DAILY 03/12/20 03/12/20 [Probiotic] Multivitamins, Thera [Multivitamin 1 tab PO DAILY 03/12/20 03/12/20 (formulary)] amLODIPine [Norvasc] 2.5 mg PO BID 03/12/20 03/12/20 Previous Rx's Medication Instructions Recorded Apixaban [Eliquis] 2.5 mg PO BID #60 tablet 08/16/19 Docusate [Colace] 100 mg PO BID PRN #60 cap 08/16/19 Ferrous Sulfate [Iron (65 MG 325 mg PO DAILY #30 tab 12/11/19 Elemental)] Metoprolol Tartrate [Lopressor] 50 mg PO BID #60 tab 08/16/19 traMADol HCL [Ultram] 50 mg PO Q6HR PRN 3 Days #12 tab 03/12/20 Allergies Allergy/AdvReac Type Severity Reaction Status Date / Time levofloxacin [From Levaquin] Allergy SHORTNESS Verified 03/12/20 14:28 OF BREATH Review of Systems ROS Statement: Those systems with pertinent positive or pertinent negative responses have been documented in the HPI. ROS Other: All systems not noted in ROS Statement are negative. Past Medical History Past Medical History: Cancer, Diabetes Mellitus, Hypertension, Osteoarthritis (OA), Renal Disease Additional Past Medical History / Comment(s): HX "sciatica." PAIN IN BUTTOCKS AND DOWN LEGS, NUMBNESS IN TOES-now resolved. HX OF FALLS, FX 2 RIBS. kidney stones. RENAL DISEASE STAGE 4 (STATES IMPROVED)., SKIN CANCER, STATES SHE HAS DIFFICULTY PICKING UP HER FEET WHEN SHE WALKS OR GOING UP A CURB- SHE SCHUFFLES WHEN SHE WALKS., STATES LEFT LEG GOES NUMB AT TIMES, BALANCE PROBLEMS. BP has been running low at home recently-feels dizzy( to call PCP), hx gout History of Any Multi-Drug Resistant Organisms: None Reported Past Surgical History: Hysterectomy Additional Past Surgical History / Comment(s): SKIN CA EXC BACK and face, RT Hand & ELBOW. PAIN PROCEDURES. Past Anesthesia/Blood Transfusion Reactions: Family History of Problems w/ Anesthesia Additional Past Anesthesia/Blood Transfusion Reaction / Comment(s): DAUGHTER=PONV Past Psychological History: No Psychological Hx Reported Smoking Status: Never smoker Past Alcohol Use History: None Reported Past Drug Use History: None Reported - Past Family History Daughter(s) Family Medical History: Cancer, Pulmonary Embolus Father Family Medical History: Cancer Additional Family Medical History / Comment(s): BLADDER CANCER General Exam - General Exam Comments Initial Comments: This is a well-developed well-nourished awake alert oriented history female with a Garima Coma Scale of 15 Limitations: physical limitation General appearance: alert, in no apparent distress Head exam: Present: normocephalic, other (Impression a 1 cm well approximated scalp laceration localized hematoma no active bleeding no step-off no crepitation no foreign body seen.) Eye exam: Present: normal appearance, PERRL, EOMI. Absent: scleral icterus, conjunctival injection, periorbital swelling ENT exam: Present: normal exam, mucous membranes moist Neck exam: Present: normal inspection, other (C-collar in place placed by EMS personnel). Absent: lymphadenopathy Respiratory exam: Present: normal lung sounds bilaterally. Absent: respiratory distress, wheezes, rales, rhonchi, stridor Cardiovascular Exam: Present: regular rate, normal rhythm, normal heart sounds. Absent: systolic murmur, diastolic murmur, rubs, gallop, clicks GI/Abdominal exam: Present: soft, normal bowel sounds. Absent: distended, tenderness, guarding, rebound, rigid Extremities exam: Present: tenderness, normal capillary refill, other (Tenderness palpation of the proximal humeral head region no definite step-off or crepitation with pain with motion. Additionally there is a approximately 2.5 cm area over the posterior left elbow of skin slippages. No foreign body seen no active bleeding at this time. No step-off or crepitation). Absent: full ROM, pedal edema, joint swelling, calf tenderness Back exam: Present: normal inspection Neurological exam: Present: alert, oriented X3, CN II-XII intact Psychiatric exam: Present: normal affect, normal mood Skin exam: Present: warm, dry, intact, normal color. Absent: rash Course Vital Signs 03/12/20 03/12/20 03/12/20 13:03 13:53 15:20 Temperature 98.6 F Pulse Rate 66 61 67 Respiratory 18 18 18 Rate Blood Pressure 169/68 154/57 186/65 O2 Sat by Pulse 100 99 99 Oximetry Medical Decision Making - Medical Decision Making I did discuss the findings with the patient family as well as with Dr. Portillo. Patient will be discharged and follow-up with Dr. Lindsey light. Tramadol be used after discussed with the patient she states that Tylenol does not help her. I did also discuss that she is increase oral fluids. - Lab Data Result diagrams: 03/12/20 14:30 03/12/20 14:30 Lab Results 03/12/20 03/12/20 03/12/20 Range/Units 13:56 14:30 14:30 WBC 7.2 (3.8-10.6) k/uL RBC 2.70 L (3.80-5.40) m/uL Hgb 8.1 L (11.4-16.0) gm/dL Hct 25.0 L (34.0-46.0) % MCV 92.7 (80.0-100.0) fL MCH 29.9 (25.0-35.0) pg MCHC 32.2 (31.0-37.0) g/dL RDW 14.8 (11.5-15.5) % Plt Count 154 (150-450) k/uL Neutrophils % 81 % Lymphocytes % 13 % Monocytes % 4 % Eosinophils % 2 % Basophils % 0 % Neutrophils # 5.8 (1.3-7.7) k/uL Lymphocytes # 0.9 L (1.0-4.8) k/uL Monocytes # 0.3 (0-1.0) k/uL Eosinophils # 0.1 (0-0.7) k/uL Basophils # 0.0 (0-0.2) k/uL Sodium 137 (137-145) mmol/L Potassium 4.5 (3.5-5.1) mmol/L Chloride 113 H (98-107) mmol/L Carbon Dioxide 17 L (22-30) mmol/L Anion Gap 7 mmol/L BUN 38 H (7-17) mg/dL Creatinine 2.68 H (0.52-1.04) mg/dL Est GFR (CKD-EPI)AfAm 18 (>60 ml/min/1.73 sqM) Est GFR (CKD-EPI)NonAf 15 (>60 ml/min/1.73 sqM) Glucose 328 H (74-99) mg/dL POC Glucose (mg/dL) 386 H (75-99) mg/dL POC Glu Umbrella [employer] ID Maura Buitrago Calcium 8.3 L (8.4-10.2) mg/dL Total Bilirubin 0.6 (0.2-1.3) mg/dL AST 16 (14-36) U/L ALT 12 (4-34) U/L Alkaline Phosphatase 54 (38-126) U/L Creatine Kinase 55 (30-135) U/L Total Protein 5.3 L (6.3-8.2) g/dL Albumin 2.9 L (3.5-5.0) g/dL - Radiology Data Radiology results: report reviewed (I did review the imaging and reports CAT scan is negative for acute findings except for thyroid nodule. The x-ray shows evidence of approximately humerus surgical neck fracture.), image reviewed Disposition Clinical Impression: Fall, Scalp laceration, Scalp hematoma, Fracture, humerus, anatomical neck Disposition: HOME SELF-CARE Condition: Good Instructions (If sedation given, give patient instructions): Fall Prevention for Older Adults (ED), Laceration (DC), Hematoma (ED), Arm Fracture in Adults (ED) Additional Instructions: Ice 24-48 hours to the left shoulder Prescriptions: traMADol HCL [Ultram] 50 mg PO Q6HR PRN 3 Days #12 tab PRN Reason: Pain Is patient prescribed a controlled substance at d/c from ED?: Yes When asked, does pt state using other controlled substances?: No If prescribed controlled substance>3 days was MAPS reviewed?: Prescribed <3 Days If opioid is for acute pain is fill amount 7 days or less?: Yes If Rx opioid, was Start Talking consent form obtained?: Yes Referrals: Emil Portillo MD [Primary Care Provider] - 1-2 days Bimal Ramirez DO [Doctor of Osteopathic Medicine] - 1-2 days
[2020-03-12 13:58] LABS: Glucose,Whole Blood 386 mg/dL (75-99)
[2020-03-12] MEDS ORDERED: SODIUM CHLORIDE 0.9% 1,000 ML IV STA (14:01)
[2020-03-12] MEDS ORDERED: MORPHINE SULFATE 4 MG/ML SYRINGE IVP STA ×2 (14:01→15:10)
--- NOTE | 2020-03-12 14:18 | CT ---
EXAMINATION TYPE: CT brain adilene wo con DATE OF EXAM: 03/12/2020 COMPARISON: None HISTORY: 89-year-old female Fall with head trauma on [employer] CT DLP: 1223 mGycm Automated exposure control for dose reduction was used. Technique: Examination of the head was done in axial plane without intravenous contrast. Coronal and sagittal reconstructions performed. CT of the cervical spine was obtained in axial plane without intravenous injection of contrast mater ial. Coronal and sagittal reformatted images were obtained from the axial views for evaluation of f ractures, spinal alignment and canal. FINDINGS: Head: There is no evidence of acute intracranial hemorrhage, acute ischemic changes, mass, mass-effect, or extra-axial fluid collection. There is no effacement of cerebral sulci or basal subarachnoid cister ns. There is no hydrocephalus. There is no midline shift. Arcos-white matter distinction is preserv ed. There seems to be some right posterior scalp swelling. No underlying calvarial fracture. Moderate cor tical atrophy. Moderate confluent white matter hypodensities in posterior hemisphere suggesting rivera es of chronic small vessel ischemic disease. Benign basal ganglionic calcifications. Partially empty sella. Normal variation of hyperostosis frontalis interna. Trace mucosal thickening ethmoid air cells and maxillary sinuses. Mastoid air cells well pneumatized. Orbits and globes are intact. Cervical spine: Possible 1.4 cm nodule posterior left thyroid lobe. This can be further evaluated with dedicated thyr oid ultrasound. No craniocervical junction anomaly, predental space widening, or prevertebral soft tissue swelling. D egenerative changes of the C1 dens articulation. No acute fracture of the cervical spine. Trace grade 1 anterolisthesis at C3-C4, C4-C5, C5-C6, C6/C7. Facet and uncovertebral joint arthropathy throughout. Calcifications in the bilateral palatine tonsils suggests sequela of prior infection. Sagittal and coronal reformatted images confirm above findings. COMBINED IMPRESSION: 1. Moderate atrophy and changes of chronic small vessel ischemic disease. There may be a mild right p osterior scalp contusion. No acute intracranial abnormality seen. 2. No acute fracture of the cervical spine. Moderate spondylotic change with degenerative grade 1 ant erolistheses from C3 through C7 levels. 3. Nonemergent dedicated thyroid ultrasound can further assess for a possible 1.4 cm posterior left t hyroid nodule.
[2020-03-12 14:48] LABS: Basophils % (A) 0 %; Eosinophils # (A) 0.1 k/uL (0-0.7); Eosinophils % (A) 2 %; HGB 8.1 gm/dL (11.4-16.0); Lymphocytes # (A) 0.9 k/uL (1.0-4.8); Lymphocytes % (A) 13 %; MCH 29.9 pg (25.0-35.0); MCHC 32.2 g/dL (31.0-37.0); MCV 92.7 fL (80.0-100.0); Mean Platelet Volume 7.7; Monocytes # (A) 0.3 k/uL (0-1.0); Monocytes % (A) 4 %; Neutrophils # (A) 5.8 k/uL (1.3-7.7); Neutrophils % (A) 81 %; Platelet Count 154 k/uL (150-450); RDW 14.8 % (11.5-15.5); WBC 7.2 k/uL (3.8-10.6)
[2020-03-12 15:00] LABS: Albumin 2.9 g/dL (3.5-5.0); Calcium 8.3 mg/dL (8.4-10.2); Potassium 4.5 mmol/L (3.5-5.1); Total Bilirubin 0.6 mg/dL (0.2-1.3); Total Protein 5.3 g/dL (6.3-8.2)
--- NOTE | 2020-03-12 15:07 | XR ---
EXAMINATION TYPE: XR humerus LT DATE OF EXAM: 03/12/2020 COMPARISON: NONE HISTORY: Pain TECHNIQUE: 2 views submitted. FINDINGS: Diffuse osteopenia and arthropathy of the shoulder. There is a cortical step-off involving the neck o f the humerus highly suggestive of a fracture. Correlate with point tenderness. IMPRESSION: 1. Findings suspicious for a left humeral neck fracture.
--- NOTE | 2020-03-12 15:08 | XR ---
EXAMINATION TYPE: XR shoulder complete LT DATE OF EXAM: 03/12/2020 COMPARISON: NONE HISTORY: Pain TECHNIQUE: Three views are submitted. FINDINGS: Diffuse osteopenia and arthropathy of the AC joint. There is a cortical step-off involving the neck o f the humerus suspicious for fracture. Arthropathy of the glenohumeral joint noted. No dislocation. IMPRESSION: 1. Findings suspicious for a left humeral neck fracture.
[2020-03-12 15:24] VITALS: BP 186/65; PULSE 67
== END 2020-03-12 16:55 | disposition home or self-care (01) ==
LOC: EC 13:00
DX: S01.01XA Laceration without foreign body of scalp, initial encounter (principal); S42.292A Other displaced fracture of upper end of left humerus, initial encounter for closed fracture; N18.4 Chronic kidney disease, stage 4 (severe); M85.80 Other specified disorders of bone density and structure, unspecified site; I48.20 Chronic atrial fibrillation, unspecified; I12.9 Hypertensive chronic kidney disease with stage 1 through stage 4 chronic kidney disease, or unspecified chronic kidney disease; E11.65 Type 2 diabetes mellitus with hyperglycemia; M19.90 Unspecified osteoarthritis, unspecified site; Z88.1 Allergy status to other antibiotic agents; Z79.899 Other long term (current) drug therapy; Z79.01 Long term (current) use of anticoagulants; Z85.828 Personal history of other malignant neoplasm of skin; Z80.52 Family history of malignant neoplasm of bladder; W01.190A Fall on same level from slipping, tripping and stumbling with subsequent striking against furniture, initial encounter; Y92.009 Unspecified place in unspecified non-institutional (private) residence as the place of occurrence of the external cause
CPT/HCPCS: 36415; 80053; 82550; 85025; 73030; 73060; 72125; 70450; 99284; 96374; 96375; 96361 ×2; J2270

== ENCOUNTER → 2020-04-04 | Outpatient (CLI) | payer MEDICARE ==
--- NOTE | 2020-04-05 07:01 | US ---
EXAMINATION TYPE: US thyroid st tissue head/neck DATE OF EXAM: 04/04/2020 COMPARISON: CT 03/12/2020 CLINICAL HISTORY: R22.0 SWELLING/MASS. Patient states area visualized on previous CT. Patient scanned in wheelchair GLAND SIZE: Right Lobe: 3.7 x 1.6 x 1.2 cm Overall Parenchyma: heterogenous Left Lobe: 4.0 x 1.4 x 1.5 cm Overall Parenchyma: heterogeneous Isthmus Thickness: 0.3 cm NODULES RIGHT: # of nodules measured on right: 1 1. 1.6 X 1.3 x 1.0 cm hypoechoic solid nodule at the mid pole with well-defined margins; . This no dule is wider than tall and shows intranodular vascularity. Prior size: No previous LEFT: # of nodules measured on left: 2 1. 1.3 X 1.2 x 1.0 cm hypoechoic solid nodule at the mid pole with well-defined margins; . This no dule is wider than tall and shows intranodular vascularity. Prior size: No previous 2. 0.6 X 0.7 x 0.4 cm hypoechoic cystic nodule at the upper pole with well-defined margins; . This nodule is taller than wide and shows no intranodular vascularity. Prior size: No previous ISTHMUS: # of nodules measured in the isthmus: 0 Bilateral neck scanned, no evidence of lymphadenopathy. IMPRESSION: Nonspecific thyroid heterogeneity and nodularity. The need to biopsy should be made on a clinical bas is.
== END | disposition home or self-care (01) ==
LOC: RADUSWWP 15:44
PROVIDERS: ATTEND Family Medicine
DX: R22.0 Localized swelling, mass and lump, head (principal)
CPT/HCPCS: 76536